=== PATIENT | male | born 1970 | race Caucasian/White ===

== ENCOUNTER 2025-07-31 20:04 | Inpatient (IN) | payer OTHER, SELFPAY ==
[2025-07-31] VITALS (7 sets, daily range): BP systolic 91–103; BP diastolic 58–78; BMI 38.5; BMI 38.2
[2025-07-31 18:35] LABS: Hematocrit 31.0 % (39.0-52.0); Hemoglobin 10.5 g/dL (13.0-18.0); Mean Corp Hgb Conc. 33.9 g/dL (33.0-37.0); Mean Corpuscular Volume 90.4 fL (80.0-94.0); Platelet Count 138 10^3/uL (130-400); Red Cell Dist. Width 19.8 % (11.5-14.5)
[2025-07-31 18:54] LABS: Blood Urea Nitrogen 38 mg/dl (9-20); Calcium 8.5 mg/dl (8.4-10.2); Carbon Dioxide 26 mmol/L (22-30); Chloride 102 mmol/L (98-107); Estimated Creatinine Clearance 23 ml/min; Glucose 70 mg/dl (70-99); Magnesium 2.1 mg/dl (1.6-2.3); Potassium 4.0 mmol/L (3.5-5.1); Sodium 137 mmol/L (135-145); eGFR 12.58
--- NOTE | 2025-07-31 18:58 | ED.GENMED ---
History of Present Illness
General
Chief Complaint: Abdominal Pain
Source: patient
Exam Limitations: none
Time Seen by Provider: 07/31/25 18:04
Nursing documentation reviewed up to this point in time: agreed with
History of Present Illness
History of Present Illness:
Patient with history of end-stage renal disease on hemodialysis (Monday, Monday, Monday) and liver cirrhosis, currently [facility] right femoral perlita placement secondary to fracture, presents to ED secondary to worsening
shortness of breath with increased abdominal distention, despite receiving limited dialysis. Patient states that he required paracentesis 6 months ago, at which time, 7 to 8 L of fluids were removed. Patient feels as though his abdominal
distention is similar to 6 months ago. Denies fever or chills. Denies coughing. Denies vomiting or diarrhea. In addition, patient reports right lower leg abrasion with swelling, after accidental trauma during transport. Patient has chronic
changes in his right lower leg secondary to venous stasis.
Review of Systems
Review of Systems
Allergies reviewed?: Yes
All Other Systems: ROS reviewed and negative except as documented in HPI and ROS
Constitutional: Reports no symptoms; Denies fever
Respiratory: Reports trouble breathing; Denies cough
Cardiac: Reports no symptoms
ABD/GI: Reports no symptoms; Denies vomiting or diarrhea
Musculoskeletal: Reports no symptoms
Skin: Reports no symptoms
Neurological: Reports no symptoms
Phy Exam
Physical Exam
Physical Exam:
Physical Exam
General: no apparent distress, not acutely ill. afebrile
Head: nc/at. eomi
Neck: supple. normal range of motion
Heart: s1/s2 regular rate and rhythm
Lungs: no acute respiratory distress. clear bilaterally
Abdomen: normal bowel sounds. mild distention noted without tenderness
Neuro: alert and oriented x 3. no focal neurological deficits
Skin: no rash
Psychiatric: well kept. interactive and cooperative
Extremities: RLE: well healed incision sites noted over prox thigh and lateral knee, along with superficial abrasion below patella, withtout erythema/ecchymosis/open drainage. Left BKA
Course
Orders/Labs/Results
Orders:
Orders
07/31/25 Dinner
Regular
At Your Request: Full Participation
Does patient need a safe tray?: No
07/31/25 18:22
Basic Metabolic Panel Urgent
Complete Blood Count/No Diff Urgent
Magnesium Urgent
07/31/25 19:32
Admit/Transfer Patient As Directed
Co-Sign Provider:
Level of Care: Inpatient admission
Assign to:: Telemetry
Physician / Group: grayson
Diagnosis: recurrent ascites
Reason for Telemetry: Arrhythmia
Date to Stop Telemetry: 08/03/25
Time to Stop Telemetry: 11:00
Reason for Hospitalization: recurrent ascites
Expected length of stay greater than two midnights?: Yes
ELOS- Estimated Length of Stay in days: 2
I certify the patient meets the requirements for IP care: Yes
PRN Pain Medication Management As Directed
May give lesser potent ordered pain med per pt: Yes
preference::
Protocol:: Medication orders for pain may be administered in a
manner that supports deferring to patient preference
when the pt is:
- Requesting an ordered lesser potent pain medication.
Least to most potent pain medications are defined
as: acetaminophen < NSAID < tramadol < opioids
(morphine, oxycodone, hydromorphone).
- Requesting a lesser dose of the same medication IF
ORDERED.
- Requesting a less intrusive route of administration
if both routes are prescribed by the provider (PO <
IV).
07/31/25 19:33
Code Status As Directed
Resuscitation Status: Full Code
07/31/25 19:36
CR Chest - 2 Views Urgent
Comment:
Reason For Exam: SOB
07/31/25 22:33
NEPHROLOGY CONSULT Routine
Consulting Provider: Wendie Maria
Was physician already notified: Yes
WOUND/OSTOMY CONSULT Routine
Reason for Consult: right lower extremity wound
VTE Contraindication Routine
VTE Mechanical Device Contraindication: Medical Contraindication
Pharmocologic Contraindication: Medical Contraindication
Activity As Directed
Activity Level: As Tolerated
Vital Signs As Directed
Frequency: Per unit guidelines
08/01/25 11:56
Complete Blood Count/With Diff IN AM
Comprehensive Metabolic Panel IN AM
08/03/25 11:00
DC Protocol for Telemetry ONCE
Abnormal Lab Results
07/31/25
18:22
WBC 3.8 L 10^3/uL
(4.8-10.8)
RBC 3.43 L 10^6/uL
(4.70-6.10)
Hgb 10.5 L g/dL
(13.0-18.0)
Hct 31.0 L %
(39.0-52.0)
RDW 19.8 H %
(11.5-14.5)
BUN 38 H mg/dl
(9-20)
Creatinine 5.1 H* mg/dL
(0.7-1.3)
07/31/25 18:22
07/31/25 18:22
Vital Signs
Initial and Last Documented VS:
Initial Vital Signs
Temp Pulse Resp BP Pulse Ox
98.3 F 84 16 100/73 100
07/31/25 16:11 07/31/25 16:11 07/31/25 16:11 07/31/25 16:11 07/31/25 16:11
Last Documented Vital Signs
Temp Pulse Resp BP Pulse Ox
97.7 F 85 20 95/58 95
08/01/25 11:00 08/01/25 12:46 08/01/25 11:00 08/01/25 12:46 08/01/25 11:00
MDM/Problems Addressed
MDM/Problems Addressed:
Patient's presenting shortness of breath, likely multifactorial, including need for dialysis tomorrow, as well as abdominal distention. Patient will benefit from paracentesis as well as dialysis.
*Pulse Oximetry
SaO2: 97
Oxygen Mode of Delivery: Room air
Patient hypoxic: no
*Critical Care Note
Total Time (30-74mins, 75-104mins- exclusive of procedures): Not Applicable
ED Attending Note
-
Portions of this chart may have been created with voice recognition software.� Occasional wrong word or��sound alike� substitutions may have occurred due to the inherent limitations of voice recognition software.
Discharge Plan
Departure
Patient Disposition: Admit
Date of Disposition: 07/31/25
Time of Disposition: 19:06
Admit to: Telemetry
Presentation/result/management discussed w/ accepting MD/DO: Hospitalist
Discharge Problem:
Abdominal distention, Dyspnea, ESRD (end stage renal disease) on dialysis
Interventions
Interventions:
*Risk Screen - Suicide Last Done: 07/31/25 23:21
*General Assessment Last Done: 07/31/25 18:15
*Neglect/Abuse Screening Last Done: 07/31/25 16:11
*ED- Fall Risk Assessment Last Done: 07/31/25 18:15
*ED COVID-19 Vaccine History Last Done: 07/31/25 18:15
*ED Influenza Vaccine History Last Done: 07/31/25 18:15
*Nursing Disposition Last Done: 07/31/25 22:26
LB-Fjankn-Uybkbczpij Assessment Last Done: 07/31/25 18:15
Discharge Date and Time
Discharge Date/Time: 07/31/25 22:27
--- NOTE | 2025-07-31 19:35 | HPS.HSE ---
Family Physician
-
Family Physician: Smitha Proctor
Chief Complaint
-
abd
History of Present Illness
55-year-old male past medical history of ESRD on hemodialysis Monday, Monday, Monday, liver cirrhosis secondary to MASH, paroxysmal atrial fibrillation on Eliquis, chronic venous stasis, left eye blindness, left lower extremity amputation,
presenting with increasing shortness of breath with increased abdominal distention despite receiving dialysis. He required paracentesis 6 months ago at which time 7 L of fluid removed. He denies fevers or chills. Denies cough. Denies vomiting or
diarrhea. His blood pressure normally runs low in the 90s.
He recently had right femur fracture with perlita placement 3 weeks ago.
Patient has a right lower leg abrasion with swelling after accidental trauma during transfer a week ago. He denies any pain but there is with some weeping.
He drinks alcohol occasionally. He has not smoked in over a month.
Medical History
Past Medical History
Past Medical History: Reports Other (ESRD on hemodialysis Monday, Monday, Monday, liver cirrhosis secondary to MASH, paroxysmal atrial fibrillation on Eliquis, chronic venous stasis, left eye blindness, left lower extremity amputation)
Past Surgical History: Reports Other (right femur perlita )
Social History
Tobacco: Non-smoker
Alcohol: None
Drug: None
Family History
Family History: Not pertinent
Allergies / Home Medications
Allergies reflects when Allergies were last updated in [employer].
Home Medications with original date entered in [employer]
Allergy/Medication List:
Allergies
Allergy/AdvReac Type Severity Reaction Status Date / Time
adhesive tape Allergy Rash Verified 07/31/25 16:22
Review of Systems
-
History Source: Patient
A 12 point ROS was completed and negative except as noted: Yes
Constitutional: Reports No Symptoms
EENT: Reports No Symptoms
Cardiac: Reports No Symptoms
Abdomen/GI: Reports See HPI
: Reports No Symptoms
Musculoskeletal: Reports No Symptoms
Skin: Reports No Symptoms
Neurological: Reports No Symptoms
Endocrine: Reports No Symptoms
Hematologic/Lymphatic: Reports No Symptoms
Psych: Reports No Symptoms
Physical Exam
Vital Signs
Vital Signs
Temp Pulse Resp BP Pulse Ox
97.6 F 87 16 99/63 93
07/31/25 18:15 07/31/25 19:00 07/31/25 19:00 07/31/25 19:00 07/31/25 19:00
Physical Exam
General: Well Developed, Well Nourished and No Apparent Distress
HEENT: NormoCephalic, Moist mucous membranes and Atraumatic
Respiratory: Clear
Cardiac: S1/S2 and Regular Rhythm; No Murmur or Rub
GI: Soft, Non Tender, Non Distended and Normal Bowel Sounds; No Organomegaly
Rectal: Deferred by Provider
Musculoskeletal: No Clubbing, No Cyanosis and No Edema
Skin: No Rash
Neuro: Nonfocal/grossly intact
Laboratory Results
-
07/31/25 18:22
07/31/25 18:22
Data Reviewed
-
Lab Data: Labs Reviewed by me
Old Records: Reviewed
Impression/Plan
-
IMPRESSION:
PLAN:
# Recurrent ascites secondary to underlying MASH cirrhosis
- IR consulted for paracentesis
# Dyspnea
- Check chest x-ray
ESRD on hemodialysis Monday, Monday, Monday
- Nephrology consulted for routine dialysis tomorrow
Chronic hypotension
Right lower extremity abrasian with weeping
-wound care
Chronic venous stasis
Chronic anemia secondary to renal disease
Paroxysmal atrial fibrillation
- Continue Eliquis
Left eye blindness
History of left lower extremity amputation
History of right femur fracture with perlita placement
Full code
DVT prophylaxis�Eliquis
Regular diet
[2025-08-01] VITALS (9 sets, daily range): BP systolic 72–98; BP diastolic 49–64; BMI 38.5
--- NOTE | 2025-08-01 06:19 | PTCARENOTE ---
Pt arrived to unit from ED on stretcher at 2230. Pt pulled over to bed d/t weakness and ambulatory dysfunction w/ L BKA and recent R femur fx-patient uses a wheelchair at baseline. Patient with extensive wound on Right leg-local wound care
completed-See wound management intervention. Pt also noted to occasionally pick at skin during nursing assessment-varying small scratches & wounds throughout trunk, face and legs; wounds in various stages of healing-wounds remain open to air.
Patient reports hypotension at baseline. Patient with considerable ascites, distended and firm abdomen, IRAD consult in place. VSS. HD MWF-Scheduled for HD on 08/01. Bed in lowest position and locked, call antoine within reach and pt has no further
concerns at this time.
--- NOTE | 2025-08-01 09:28 | W.PN.HOSP.TC ---
Today's Communication/Plan
-
Monitor for recurrent ascites
Elevate scrotum
HD later today
Assessment / Plan
Assessment / Plan
#Recurrent ascites
#MASH liver cirrhosis
- MELD labs pending; not on diuretics due to anuric state
- Status post diagnostic and therapeutic paracentesis, no signs of SBP
- Will continue to monitor for recurrence of ascites post paracentesis
- Follow-up MELD 3.0 labs, trend daily
#ESRD on HD MWF
- Unclear etiology, patient states that was associated with vancomycin received in the past
- Complicated by bone mineral disease for which she takes sevelamer and Cinacalcet
- Nephrology consulted to resume HD schedule
- Trend BMP, I's and O's, weight
#Chronic hypotension
- Associated with liver cirrhosis and hemodialysis
- Ordered midodrine 5 mg every 4 hours as needed
- Need to confirm home dose midodrine with facility
#RLE abrasion with weeping
#Chronic venous insufficiency
- Wound care
- Trend CBC and temperature curve
#Paroxysmal AF
- Per records, not currently on any anticoagulants or antiarrhythmic agent
- Will monitor here for signs of recurrence
#PAD s/p left BKA
#History of osteomyelitis
- Home regimen includes moderate intensity atorvastatin, not on antiplatelet agent
- States he had amputation for previous infection of his bones, received vancomycin at the time
#Left eye blindness
#Recent hip fracture
Diet: Standard renal
Thromboprophylaxis: SQ heparin
CODE STATUS: Full code
Disposition: [facility] when medically stable
Anticipated Discharge: 24 - 48 hours
Subjective/Interval History
-
Date of Service: August 01, 2025
Seen and examined at the bedside. No acute events reported overnight. AFVSS this morning, blood pressure soft
Underwent paracentesis with 8.4 L removed, states he feels better. Has no new complaints this morning
Fluid studies with PMN count <250.
Objective Data
-
Labs:
Laboratory Results
08/01/25
06:00
WBC Pending
Hgb Pending
Hct Pending
Plt Count Pending
Sodium Pending
Potassium Pending
Chloride Pending
Carbon Dioxide Pending
BUN Pending
Creatinine Pending
Glucose Pending
Calcium Pending
Total Bilirubin Pending
AST Pending
ALT Pending
Alkaline Phosphatase Pending
Vital Signs:
Vital Signs
Temp Pulse Resp BP Pulse Ox
97.7 F 79 16 88/56 93
08/01/25 09:00 08/01/25 09:00 08/01/25 09:00 08/01/25 09:00 08/01/25 09:00
I&O
07/31/25 08/01/25 08/02/25
06:59 06:59 06:59
Intake Total 1080 / 1080
Balance 1080 / 1080
Review of Systems
-
History Source: Patient
All other systems: Reviewed and negative
Physical Exam
-
General: Well Developed, No Apparent Distress and Morbidly Obese
HEENT: Normocephalic, Atraumatic and Moist Mucous Membranes
Respiratory: Clear to Auscultation and Non Labored Respirations; Negative Accessory Resp Muscle Use
Cardiac: Regular Rhythm, S1/S2 and Murmur; Negative Rub or Gallop
GI: Soft, Nontender, Nondistended and Normal Bowel Sounds
Musculoskeletal: No Clubbing, No Cyanosis, No Edema and Other (Left AKA)
Skin: Warm and Dry; Negative Rash
Neuro: AO x 3, Nonfocal/Grossly Intact and Central Nerve's Intact
Psych: Calm
Data Reviewed
-
Labs: Labs Reviewed by me, Discussed with Nurse and Discussed with Patient
[2025-08-01 10:51] LABS: Body Fluid Second Tech EM
[2025-08-01] MEDS: MANNITOL 25% 12.5 GRAMS IV ×2 (12:16→14:35)
[2025-08-01] MEDS: FLEXBUMIN 25% FOR HEMODIALYSIS 12.5 GRAMS IV ×2 (12:16→14:35)
[2025-08-01] MEDS: RETACRIT 4000 UNITS IV (12:17)
[2025-08-01 12:20] LABS: Hematocrit 29.3 % (39.0-52.0); Hemoglobin 10.0 g/dL (13.0-18.0); Mean Corp Hgb Conc. 34.1 g/dL (33.0-37.0); Mean Corpuscular Volume 89.1 fL (80.0-94.0); Nucleated Red Blood Cells % 0 % (-); Platelet Count 121 10^3/uL (130-400); Red Cell Dist. Width 19.7 % (11.5-14.5)
[2025-08-01] MEDS: BENADRYL 50 MG PO (12:21)
--- NOTE | 2025-08-01 12:36 | W.CON.NEPH ---
Consultation
-
Date/Time Consultation Requested: July 31, 2025 at 1900 hrs.
Date/Time Consultation Performed: August 01, 2025 at 12 PM
Requesting Provider: Zhanna Wilkerson
Performing Provider: Dr. Antony
Reason for Consultation: ESRD on dialysis
Medical History
-
Chief Complaint: ESRD
History of Present Illness:
55-year-old male past medical history of ESRD on hemodialysis Monday, Monday, Monday, liver cirrhosis secondary to MASH, paroxysmal atrial fibrillation on Eliquis, chronic venous stasis, left eye blindness, left lower extremity amputation,
presenting with increasing shortness of breath with increased abdominal distention despite receiving dialysis. He required paracentesis 6 months ago at which time 7 L of fluid removed.
He recently had right femur fracture with perlita placement 3 weeks ago.
Renal consultation for end-stage renal disease on dialysis
Past Medical History
ESRD on hemodialysis Monday, Monday, Monday, liver cirrhosis secondary to MASH, paroxysmal atrial fibrillation on Eliquis, chronic venous stasis, left eye blindness, left lower extremity amputation
Social History
Tobacco: Former Smoker
Alcohol: Occasional
Family History
Family History: Not Pertinent
Allergies / Home Medications
Allergy/AdvReac Type Severity Reaction Status Date / Time
adhesive tape Allergy Rash Verified 07/31/25 16:22
�Medication �Instructions �Recorded �Confirmed �Type
atorvastatin 20 mg tablet 20 mg PO QPM 08/01/25 08/01/25 History
bisacodyl 10 mg rectal suppository 10 mg [place] DAILY PRN constipation if 08/01/25 08/01/25 History
MOM is ineffec
carboxymethylcellulose sodium 0.5 1 drp ophthalmic (eye) QID PRN dry 08/01/25 08/01/25 History
% eye drops in a dropperette eyes
cinacalcet 30 mg tablet 30 mg PO DAILY 08/01/25 08/01/25 History
diclofenac sodium 3 % topical gel 1 applic topical BID 08/01/25 08/01/25 History
ferric citrate 210 mg iron tablet 420 mg PO TID GERD 08/01/25 08/01/25 History
lidocaine 4 % topical gel 1 applic topical DAILY 08/01/25 08/01/25 History
loperamide 2 mg tablet 2 mg PO Q8H PRN diarrhea 08/01/25 08/01/25 History
methocarbamol 500 mg tablet 500 mg PO QID PRN spasms 08/01/25 08/01/25 History
sevelamer HCl 800 mg tablet 800 mg PO TID nutritional 08/01/25 08/01/25 History
supplement
tramadol 50 mg tablet 50 mg PO BID PRN moderate pain 08/01/25 08/01/25 History
white petrolatum (White Petroleum 1 applic topical DAILY PRN 08/01/25 08/01/25 History
Jelly topical) preventative measure dry skin
Review of Systems
-
Shortness of breath improved abdominal distention improved. No chest pain
All other systems: Negative unless noted
Physical Exam
Vital Signs
Vital Signs
Temp Pulse Resp BP Pulse Ox
97.7 F 63 20 88/55 95
08/01/25 11:00 08/01/25 11:00 08/01/25 11:00 08/01/25 11:00 08/01/25 11:00
Lab Results
WBC 3.6 10^3/uL (4.8-10.8) L 08/01/25 11:56
RBC 3.29 10^6/uL (4.70-6.10) L 08/01/25 11:56
Hgb 10.0 g/dL (13.0-18.0) L 08/01/25 11:56
Hct 29.3 % (39.0-52.0) L 08/01/25 11:56
Plt Count 121 10^3/uL (130-400) L 08/01/25 11:56
eGFR 12.58 07/31/25 18:22
Physical Exam
General no acute distress
HEENT no cephalic atraumatic extraocular muscle intact no scleral icterus no JVD neck supple
lungs clear to auscultation bilateral
heart regular S1-S2 positive
abdomen soft nontender positive bowel sounds
extremities no edema pulses present bilateral
Neurologically nonfocal alert and oriented x 3
Skin no lesions no abrasions no petechiae
Psych normal affect no bizarre behavior
Data Reviewed
-
Radiology: Image Personally Visualized and interpreted
Labs: Labs Reviewed by me, Discussed with Nurse and Discussed with Patient
Assessment/Plan
-
55-year-old male past medical history of ESRD on hemodialysis Monday, Monday, Monday, liver cirrhosis secondary to NOLASCO, paroxysmal atrial fibrillation on Eliquis, chronic venous stasis, left eye blindness, left lower extremity amputation,
presenting with increasing shortness of breath with increased abdominal distention despite receiving dialysis. He required paracentesis 6 months ago at which time 7 L of fluid removed.
Impression.
ESRD Monday
NOLASCO
Anemia of chronic disease
Atrial fibrillation
Plan
Dialysis today
Epogen with dialysis for hemoglobin goal greater than 10
Status post thoracentesis
Ultrafiltration as blood pressure tolerates though has chronically low blood pressure will give midodrine
--- NOTE | 2025-08-01 12:41 | W.PN.NEPH.HD ---
Assessment
-
Midodrine
EPO
Progress Note - Hemodialysis
-
Date of Service: August 01, 2025
Duration: 30 minutes and 3 hours
Potassium Bath: 2
Calcium Bath: 2.5
Opti-Dialyzer: 160
Blood Flow: 400
Dialysate Flow: 600
--- NOTE | 2025-08-01 13:39 | WOUNDNOTE ---
[facility] RN NOTE: Reviewed chart and met with patient. Patient is from [facility] and gets dialysis M-W-F. Patient receiving dialysis at time of assessment. Patient reports hitting his right knee a few weeks ago when being transferred at facility.
Patient reported increased drainage with LE swelling. The wound is a shallow abrasion with erythema. Local wound care provided as ordered. Right heel intact. Will recommend static air overlay as patient reports he only gets out of bed with max
assist and has air mattress at facility. Will update RN and confirm orders with hospitalist. Will sign off.
[2025-08-01] MEDS: SENSIPAR 30 MG PO (13:40)
[2025-08-01 14:04] LABS: ALT (SGPT) < 10 U/L (0-50); AST (SGOT) 22 U/L (17-59); Albumin 2.9 g/dl (3.5-5.0); Alkaline Phosphatase 103 U/L (38-126); Blood Urea Nitrogen 41 mg/dl (9-20); Calcium 8.3 mg/dl (8.4-10.2); Carbon Dioxide 23 mmol/L (22-30); Chloride 103 mmol/L (98-107); Estimated Creatinine Clearance 21 ml/min; Glucose 93 mg/dl (70-99); Potassium 4.1 mmol/L (3.5-5.1); Sodium 136 mmol/L (135-145); Total Protein 6.7 g/dl (6.3-8.2); eGFR 11.01
[2025-08-01 14:10] LABS: Hepatitis B Surface Antigen Negative (Negative)
--- NOTE | 2025-08-01 14:37 | WOUNDNOTE ---
RIGHT LOWER LEG WOUND
--- NOTE | 2025-08-01 14:38 | CM ---
Addendum entered by Bindu Moore RN 08/01/25 16:15:
IMM reviewed.
Original Note:
Reviewed the chart notes and spoke with the patient at the bedside on HD. The patient is currently at [facility] for short term rehab. Patient plans on returning to [facility] to continue rehab. Patient is bed/wheelchair bound. Patient prior
to SNF was using a transfer board. Patient plans to rehab and return home to family. CM spoke with [facility] Spooler at [facility]. Precert needs to be obtained to return for skilled rehab. CM continues to be available to patient/family
and is monitoring medical plan for needs at discharge.
Plan: Discharge back to [facility] when medically stable.
[facility]
Dr. Proctor
[2025-08-01] MEDS: ULTRAM 50 MG PO ×2 (15:43→23:23)
[2025-08-01] MEDS: HEPARIN SC ×2 (16:34→23:19)
[2025-08-01] MEDS: RENVELA 800 MG PO (17:33)
[2025-08-01] MEDS: LIPITOR 20 MG PO (17:33)
[2025-08-01] MEDS: IMODIUM 2 MG PO (23:23)
[2025-08-02] VITALS (8 sets, daily range): BP systolic 89–102; BP diastolic 50–59; PULSE 84–85; O2SAT 95–98; BMI 36.0
[2025-08-02 07:21] LABS: Hematocrit 30.6 % (39.0-52.0); Hemoglobin 9.9 g/dL (13.0-18.0); Mean Corp Hgb Conc. 32.4 g/dL (33.0-37.0); Mean Corpuscular Volume 91.3 fL (80.0-94.0); Nucleated Red Blood Cells % 0 % (-); Platelet Count 113 10^3/uL (130-400); Red Cell Dist. Width 19.5 % (11.5-14.5)
[2025-08-02 07:56] LABS: ALT (SGPT) < 10 U/L (0-50); AST (SGOT) 21 U/L (17-59); Albumin 2.9 g/dl (3.5-5.0); Alkaline Phosphatase 104 U/L (38-126); Blood Urea Nitrogen 32 mg/dl (9-20); Calcium 7.7 mg/dl (8.4-10.2); Carbon Dioxide 28 mmol/L (22-30); Chloride 100 mmol/L (98-107); Estimated Creatinine Clearance 25 ml/min; Glucose 68 mg/dl (70-99); Potassium 4.0 mmol/L (3.5-5.1); Sodium 135 mmol/L (135-145); Total Protein 6.6 g/dl (6.3-8.2); eGFR 14.24
[2025-08-02] MEDS: SENSIPAR 30 MG PO (08:00)
[2025-08-02] MEDS: RENVELA 800 MG PO ×3 (08:00→17:35)
[2025-08-02] MEDS: HEPARIN SC ×2 (09:09→16:28)
--- NOTE | 2025-08-02 09:21 | W.PN.HOSP.TC ---
Today's Communication/Plan
-
Continue hemodialysis schedule
Monitor abdomen for recurrence of ascites
Trend CBC
Possible discharge
Assessment / Plan
Assessment / Plan
#Recurrent ascites
#MASH liver cirrhosis
- MELD labs pending; not on diuretics due to anuric state
- Status post diagnostic and therapeutic paracentesis, no signs of SBP
- Will continue to monitor for recurrence of ascites post paracentesis
- Follow-up MELD 3.0 labs, trend daily
#ESRD on HD MWF
- Unclear etiology, patient states that was associated with vancomycin received in the past
- Complicated by bone mineral disease for which she takes sevelamer and Cinacalcet
- Nephrology consulted to resume HD schedule
- Trend BMP, I's and O's, weight
#Cardiac murmur
- Has a 2/6 murmur best heard in the RUSB with honking quality
- Suspect calcific aortic stenosis, especially with ESRD history
- No signs of CHF or decompensation
- Recommend OP TTE and follow-up with cardiology
#Bleeding from HD access
#Mild thrombocytopenia
- Bleeding has improved since holding SQH
- Hemoglobin stable, platelets mildly downtrended
- Continue to trend CBC
#Chronic hypotension
- Associated with liver cirrhosis and hemodialysis
- Ordered midodrine 5 mg every 4 hours as needed
- Need to confirm home dose midodrine with facility
#RLE abrasion with weeping
#Chronic venous insufficiency
- Wound care
- Trend CBC and temperature curve
#Paroxysmal AF
- Per records, not currently on any anticoagulants or antiarrhythmic agent
- Will monitor here for signs of recurrence
#PAD s/p left BKA
#History of osteomyelitis
- Home regimen includes moderate intensity atorvastatin, not on antiplatelet agent
- States he had amputation for previous infection of his bones, received vancomycin at the time
#Left eye blindness
#Recent hip fracture
Diet: Standard renal
Thromboprophylaxis: SQ heparin
CODE STATUS: Full code
Disposition: [facility] when medically stable, case management to discuss about other possible dispositions
Anticipated Discharge: Within 24 hours
Subjective/Interval History
-
Date of Service: August 02, 2025
Seen examined at the bedside. No acute events reported overnight. AFVSS this morning
Glucose of 68 prior to breakfast however remainder of labs stable. Denies any new complaints today
Mentions that he was not happy with [facility] and would like to speak to case management about other options
Objective Data
-
Labs:
Laboratory Results
08/02/25
06:43
WBC 3.6 L
Hgb 9.9 L
Hct 30.6 L
Plt Count 113 L
Sodium 135
Potassium 4.0
Chloride 100
Carbon Dioxide 28
BUN 32 H
Creatinine 4.6 H*
Glucose 68 L
Calcium 7.7 L
Total Bilirubin 1.0
AST 21
ALT < 10
Alkaline Phosphatase 104
Vital Signs:
Vital Signs
Temp Pulse Resp BP Pulse Ox
97.7 F 81 16 99/52 98
08/02/25 07:40 08/02/25 07:40 08/02/25 07:40 08/02/25 07:40 08/02/25 07:40
I&O
08/01/25 08/02/25 08/03/25
06:59 06:59 06:59
Intake Total 1080 / 1080 1680 / 1680
Output Total 0 / 0
Balance 1080 / 1080 1680 / 1680
Review of Systems
-
History Source: Patient
All other systems: Reviewed and negative
Physical Exam
-
General: Well Developed, No Apparent Distress, Appears Chronically Ill and Morbidly Obese
HEENT: Normocephalic, Atraumatic, Moist Mucous Membranes and Anicteric
Respiratory: Clear to Auscultation and Non Labored Respirations; Negative Accessory Resp Muscle Use
Cardiac: Regular Rhythm, S1/S2 and Murmur; Negative Rub or Gallop
GI: Soft, Nontender, Nondistended, Normal Bowel Sounds and Other (No fluid wave or distention)
Musculoskeletal: No Clubbing, No Cyanosis and No Edema
Skin: Warm and Dry; Negative Rash
Neuro: AO x 3, Nonfocal/Grossly Intact and Central Nerve's Intact; Negative Tremors
Psych: Calm
Data Reviewed
-
Labs: Labs Reviewed by me, Discussed with Nurse and Discussed with Patient
--- NOTE | 2025-08-02 11:38 | W.PN.NEPH.PH ---
Today's Communication / Plan
-
Dialysis Monday if still in the hospital
Assessment/Plan
-
55-year-old male past medical history of ESRD on hemodialysis Monday, Monday, Monday, liver cirrhosis secondary to NOLASCO, paroxysmal atrial fibrillation on Eliquis, chronic venous stasis, left eye blindness, left lower extremity amputation,
presenting with increasing shortness of breath with increased abdominal distention despite receiving dialysis. He required paracentesis 6 months ago at which time 7 L of fluid removed.
Impression.
ESRD Monday
NOLASCO
Anemia of chronic disease
Atrial fibrillation
Plan
Continue MWF y
Epogen with dialysis for hemoglobin goal greater than 10
Status post paracentesis
No acute need for dialysis today
-
-
Date of Service: August 02, 2025
CC / HPI / ROS
-
Chief Complaint:
ESRD
History of Present Illness:
Yesterday presented with shortness of breath abdominal distention ascites status post paracentesis
Review of Systems:
No shortness of breath or chest pain
Labs
-
Labs:
WBC 3.6 10^3/uL (4.8-10.8) L 08/02/25 06:43
RBC 3.35 10^6/uL (4.70-6.10) L 08/02/25 06:43
Hgb 9.9 g/dL (13.0-18.0) L 08/02/25 06:43
Hct 30.6 % (39.0-52.0) L 08/02/25 06:43
Plt Count 113 10^3/uL (130-400) L 08/02/25 06:43
Sodium 135 mmol/L (135-145) 08/02/25 06:43
Potassium 4.0 mmol/L (3.5-5.1) 08/02/25 06:43
Chloride 100 mmol/L (98-107) 08/02/25 06:43
Carbon Dioxide 28 mmol/L (22-30) 08/02/25 06:43
BUN 32 mg/dl (9-20) H 08/02/25 06:43
Creatinine 4.6 mg/dL (0.7-1.3) H* 08/02/25 06:43
eGFR 14.24 08/02/25 06:43
Glucose 68 mg/dl (70-99) L 08/02/25 06:43
Calcium 7.7 mg/dl (8.4-10.2) L 08/02/25 06:43
Albumin 2.9 g/dl (3.5-5.0) L 08/02/25 06:43
Physical Exam
-
Vital Signs:
Vital Signs
Temp Pulse Resp BP Pulse Ox
97.5 F 82 16 93/56 98
08/02/25 11:24 08/02/25 11:24 08/02/25 11:24 08/02/25 11:24 08/02/25 11:24
Respiratory:: Bilateral: CTA
Lung Excursion:: Normal
Abdomen:: Nontender and Soft
Bowel Sounds:: Normal
Extremity Edema:: None: Bilateral:
--- NOTE | 2025-08-02 15:26 | CM ---
CM reviewed pt with attending and pt medically ready for dc
Bed remains available at [facility]
Bedside meeting with pt and he does not want to return back to [facility]
Pt is requesting SNF be arranged closer his home in [facility]
Pt typically resides with his parents and has been attending outpt HD at [facility] for approx 9 years
He utilizes county transport and a slide board for transfers into HD chair as pt with Alaina BRUCE
He noted he typically goes to [facility] or [facility] for SNF rehab and utilizes their vans for transport to outpt HD
Not appropriate at this time as pt is unable to transfer into outpt HD chair via slideboard
Upon leg fx repair at [facility], a bed was arranged ar [facility] with onsite HD but due to dc delay, bed no longer available
He is requesting referrals to [facility]
If alternate bed cannot be arranged, he is in agreement with return to [facility]
Referrals sent and pending- will need Devaughn medina
[facility] SNF
Dr. Proctor
Discharge Disposition- SNF closer to [facility] vs return to [facility]
[2025-08-02] MEDS: LIPITOR 20 MG PO (17:35)
[2025-08-02] MEDS: ULTRAM 50 MG PO (20:31)
[2025-08-02] MEDS: BENADRYL 50 MG PO (20:32)
[2025-08-03] VITALS (7 sets, daily range): BP systolic 88–116; BP diastolic 50–65; BMI 36.5
[2025-08-03] MEDS: HEPARIN SC ×2 (00:29→09:22)
--- NOTE | 2025-08-03 08:53 | W.PN.HOSP.TC ---
Today's Communication/Plan
-
IR paracentesis tomorrow
HD tomorrow
Monitor weights
Hypoglycemic precautions
Assessment / Plan
Assessment / Plan
#Recurrent ascites
#MASH liver cirrhosis
- MELD labs pending; not on diuretics due to anuric state
- Status post diagnostic and therapeutic paracentesis, no signs of SBP
- Will continue to monitor for recurrence of ascites post paracentesis
- Follow-up MELD 3.0 labs, trend daily
- IR consulted for Tx paracentesis on 08/04
#ESRD on HD MWF
- Unclear etiology, patient states that was associated with vancomycin received in the past
- Complicated by bone mineral disease for which she takes sevelamer and Cinacalcet
- Nephrology consulted to resume HD schedule
- Trend BMP, I's and O's, weight
#Cardiac murmur
- Has a 2/6 murmur best heard in the RUSB with honking quality
- Suspect calcific aortic stenosis, especially with ESRD history
- No signs of CHF or decompensation
- Recommend OP TTE and follow-up with cardiology
#Bleeding from HD access
#Mild thrombocytopenia
- Bleeding has improved since holding SQH
- Hemoglobin stable, platelets mildly downtrended
- Continue to trend CBC
#Chronic hypotension
- Associated with liver cirrhosis and hemodialysis
- Ordered midodrine 5 mg every 4 hours as needed
- Need to confirm home dose midodrine with facility
#RLE abrasion with weeping
#Chronic venous insufficiency
- Wound care
- Trend CBC and temperature curve
#Paroxysmal AF
- Per records, not currently on any anticoagulants or antiarrhythmic agent
- Will monitor here for signs of recurrence
#PAD s/p left BKA
#History of osteomyelitis
- Home regimen includes moderate intensity atorvastatin, not on antiplatelet agent
- States he had amputation for previous infection of his bones, received vancomycin at the time
#Left eye blindness
#Recent hip fracture
Diet: Standard renal
Thromboprophylaxis: SQ heparin
CODE STATUS: Full code
Disposition: [facility] when medically stable, case management to discuss about other possible dispositions
Anticipated Discharge: 24 - 48 hours
Subjective/Interval History
-
Date of Service: August 03, 2025
Seen and examined at the bedside. NAEON. WENS this morning
Hypoglycemic to 52 this AM, labs otherwise stable.
Denies any new complaints. States he feels as if some ascitic fluid returned
Objective Data
-
Vital Signs:
Vital Signs
Temp Pulse Resp BP Pulse Ox
97.5 F 79 16 115/65 97
08/03/25 07:40 08/03/25 07:40 08/03/25 07:40 08/03/25 07:40 08/03/25 07:40
I&O
08/02/25 08/03/25 08/04/25
06:59 06:59 06:59
Intake Total 1680 / 1680 800 / 800
Output Total 0 / 0
Balance 1680 / 1680 800 / 800
Review of Systems
-
History Source: Patient
All other systems: Reviewed and negative
Physical Exam
-
General: Well Developed, Appears Chronically Ill and Obese
HEENT: Normocephalic, Atraumatic, Moist Mucous Membranes and Anicteric
Respiratory: Clear to Auscultation and Non Labored Respirations; Negative Accessory Resp Muscle Use
Cardiac: Regular Rhythm, S1/S2 and Murmur; Negative Rub or Gallop
GI: Soft, Nontender, Normal Bowel Sounds and Distended (Mild, fluid wave+)
Musculoskeletal: No Clubbing, No Cyanosis, No Edema and Other ((L) BKA)
Skin: Warm and Dry; Negative Rash
Neuro: AO x 3, Nonfocal/Grossly Intact and Central Nerve's Intact
Psych: Calm
Data Reviewed
-
Labs: Labs Reviewed by me and Discussed with Patient
[2025-08-03] MEDS: RENVELA 800 MG PO ×2 (09:22→16:16)
[2025-08-03] MEDS: SENSIPAR 30 MG PO (09:22)
[2025-08-03 09:23] LABS: Hematocrit 30.9 % (39.0-52.0); Hemoglobin 9.9 g/dL (13.0-18.0); Mean Corp Hgb Conc. 32.0 g/dL (33.0-37.0); Mean Corpuscular Volume 93.1 fL (80.0-94.0); Nucleated Red Blood Cells % 0 % (-); Platelet Count 106 10^3/uL (130-400); Red Cell Dist. Width 20.1 % (11.5-14.5)
[2025-08-03 09:42] LABS: Blood Urea Nitrogen 40 mg/dl (9-20); Calcium 7.7 mg/dl (8.4-10.2); Carbon Dioxide 29 mmol/L (22-30); Chloride 100 mmol/L (98-107); Estimated Creatinine Clearance 21 ml/min; Glucose 52 mg/dl (70-99); Potassium 4.6 mmol/L (3.5-5.1); Sodium 135 mmol/L (135-145); eGFR 11.75
[2025-08-03 10:14] LABS: Glucose - Point of Care 70 mg/dl (70-99)
[2025-08-03] MEDS: HEPARIN 5000 UNITS SC ×3 (10:43→23:03)
[2025-08-03] MEDS: RENVELA PO ×2 (13:48→18:08)
--- NOTE | 2025-08-03 14:59 | W.PN.NEPH.PH ---
Today's Communication / Plan
-
Dialysis tomorrow
Assessment/Plan
-
55-year-old male past medical history of ESRD on hemodialysis Monday, Monday, Monday, liver cirrhosis secondary to NOLASCO, paroxysmal atrial fibrillation on Eliquis, chronic venous stasis, left eye blindness, left lower extremity amputation,
presenting with increasing shortness of breath with increased abdominal distention despite receiving dialysis. He required paracentesis 6 months ago at which time 7 L of fluid removed.
Impression.
ESRD Monday
NOLASCO
Anemia of chronic disease
Atrial fibrillation
Plan
Continue MWF y
Epogen with dialysis for hemoglobin goal greater than 10
Status post paracentesis, may require another prior to discharge.
No acute need for dialysis today
-
-
Date of Service: August 03, 2025
CC / HPI / ROS
-
Chief Complaint:
ESRD
History of Present Illness:
Presented with shortness of breath abdominal distention ascites status post paracentesis secondary to NOLASCO
Review of Systems:
No shortness of breath or chest pain
Increasing abdominal distention
Labs
-
Labs:
WBC 3.7 10^3/uL (4.8-10.8) L 08/03/25 09:09
RBC 3.32 10^6/uL (4.70-6.10) L 08/03/25 09:09
Hgb 9.9 g/dL (13.0-18.0) L 08/03/25 09:09
Hct 30.9 % (39.0-52.0) L 08/03/25 09:09
Plt Count 106 10^3/uL (130-400) L 08/03/25 09:09
Sodium 135 mmol/L (135-145) 08/03/25 09:09
Potassium 4.6 mmol/L (3.5-5.1) 08/03/25 09:09
Chloride 100 mmol/L (98-107) 08/03/25 09:09
Carbon Dioxide 29 mmol/L (22-30) 08/03/25 09:09
BUN 40 mg/dl (9-20) H 08/03/25 09:09
Creatinine 5.4 mg/dL (0.7-1.3) H* 08/03/25 09:09
eGFR 11.75 08/03/25 09:09
Glucose 52 mg/dl (70-99) L* 08/03/25 09:09
Calcium 7.7 mg/dl (8.4-10.2) L 08/03/25 09:09
Albumin 2.9 g/dl (3.5-5.0) L 08/02/25 06:43
Physical Exam
-
Vital Signs:
Vital Signs
Temp Pulse Resp BP Pulse Ox
97.7 F 92 20 106/59 100
08/03/25 11:15 08/03/25 11:15 08/03/25 11:15 08/03/25 11:15 08/03/25 11:15
Respiratory:: Bilateral: CTA
Lung Excursion:: Normal
Abdomen:: Distended, Nontender and Soft
Bowel Sounds:: Normal
Extremity Edema:: None: Bilateral:
[2025-08-03] MEDS: LIPITOR 20 MG PO (17:26)
[2025-08-03] MEDS: ULTRAM 50 MG PO (17:35)
[2025-08-03 22:42] LABS: Glucose - Point of Care 101 mg/dl (70-99)
[2025-08-03 22:42] LABS: Glucose - Point of Care 103 mg/dl (70-99)
[2025-08-03 22:42] LABS: Glucose - Point of Care 90 mg/dl (70-99)
[2025-08-04] VITALS (9 sets, daily range): BP systolic 72–106; BP diastolic 42–67; BMI 36.8
[2025-08-04] MEDS: BENADRYL 50 MG PO (00:29)
[2025-08-04 07:19] LABS: Glucose - Point of Care 47 mg/dl (70-99)
[2025-08-04] MEDS: SENSIPAR 30 MG PO (07:29)
[2025-08-04] MEDS: HEPARIN SC ×3 (07:30→15:04)
[2025-08-04] MEDS: RENVELA PO ×2 (07:35→12:52)
[2025-08-04 07:37] LABS: Glucose - Point of Care 50 mg/dl (70-99)
[2025-08-04 08:13] LABS: Hematocrit 30.6 % (39.0-52.0); Hemoglobin 9.7 g/dL (13.0-18.0); Mean Corp Hgb Conc. 31.7 g/dL (33.0-37.0); Mean Corpuscular Volume 93.6 fL (80.0-94.0); Nucleated Red Blood Cells % 0 % (-); Platelet Count 126 10^3/uL (130-400); Red Cell Dist. Width 19.7 % (11.5-14.5)
[2025-08-04 08:33] LABS: Glucose - Point of Care 78 mg/dl (70-99)
[2025-08-04 08:42] LABS: Blood Urea Nitrogen 45 mg/dl (9-20); Calcium 7.5 mg/dl (8.4-10.2); Carbon Dioxide 27 mmol/L (22-30); Chloride 100 mmol/L (98-107); Estimated Creatinine Clearance 19 ml/min; Glucose 45 mg/dl (70-99); Magnesium 2.0 mg/dl (1.6-2.3); Potassium 5.1 mmol/L (3.5-5.1); Sodium 134 mmol/L (135-145); eGFR 9.95
--- NOTE | 2025-08-04 08:44 | W.PN.NEPH.HD ---
Assessment
-
Patient seen on dialysis
Systolic blood pressure stable with current UF
Progress Note - Hemodialysis
-
Date of Service: August 04, 2025
Duration: 30 minutes and 3 hours
Potassium Bath: 2
Calcium Bath: 2.5
Opti-Dialyzer: 160
Ultrafiltration: Other
Blood Flow: 400
Dialysate Flow: 600
Heparin: none
EPO: 4000
--- NOTE | 2025-08-04 09:42 | CM ---
Reviewed the chart notes. Patient on HD today. Patient scheduled for IR for therapeutic paracentesis today. CM continues to be available to patient/family and is monitoring medical plan for needs at discharge.
Plan: Discharge to SNF/rehab. Referral were sent to two other facilities at the patient's request. If unable to discharge to either facility, will discharge back to [facility] Precert will be required.
[2025-08-04] MEDS: RETACRIT 4000 UNITS IV (09:46)
[2025-08-04] MEDS: MANNITOL 25% 12.5 GRAMS IV ×2 (10:10→11:11)
--- NOTE | 2025-08-04 10:11 | PTCARENOTE ---
Pt hypoglycemic this AM at 47. 4 oz juice given, rechecked at 50. Second 4 oz juice given, BS came up to 78. See hypoglycemic intervention. No new orders at this time.
[2025-08-04 11:49] LABS: Glucose - Point of Care 82 mg/dl (70-99)
--- NOTE | 2025-08-04 12:18 | W.PN.HOSP.TC ---
Today's Communication/Plan
-
Monitor glucose levels
HD
Assessment / Plan
Assessment / Plan
#Hypoglycemic
� Asymptomatic, suspect secondary to not eating a meal last night
� Educated on not skipping meals
� Monitor today
� No obvious source of infection, for follow-up, trend fever curve, white count
#Recurrent ascites
#MASH liver cirrhosis
- not on diuretics due to anuric state
- Status post diagnostic and therapeutic paracentesis, no signs of SBP
- Will continue to monitor for recurrence of ascites post paracentesis
- IR consulted for Tx paracentesis on 08/04
#Hyponatremia
� Monitor with HD
#ESRD on HD MWF
- Unclear etiology
- Complicated by bone mineral disease for which she takes sevelamer and Cinacalcet
- Nephrology consulted to resume HD schedule
- Trend BMP, I's and O's, weight
#Cardiac murmur
- Has a 2/6 murmur best heard in the RUSB with honking quality
- Suspect calcific aortic stenosis, especially with ESRD history
- No signs of CHF or decompensation
- Recommend OP TTE and follow-up with cardiology
#Bleeding from HD access
#Mild thrombocytopenia
- Bleeding has improved since holding SQH
- Hemoglobin stable
#Chronic hypotension
- Associated with liver cirrhosis and hemodialysis
- Ordered midodrine 5 mg every 4 hours as needed
- Need to confirm home dose midodrine with facility
#RLE abrasion with weeping
#Chronic venous insufficiency
- Wound care
- Trend CBC and temperature curve
#Paroxysmal AF
- Per records, not currently on any anticoagulants or antiarrhythmic agent
- Will monitor here for signs of recurrence
#PAD s/p left BKA
#History of osteomyelitis
- Home regimen includes moderate intensity atorvastatin, not on antiplatelet agent
- States he had amputation for previous infection of his bones, received vancomycin at the time
#Left eye blindness
#Recent hip fracture
Diet: Standard renal
Thromboprophylaxis: SQ heparin
CODE STATUS: Full code
Disposition: [facility] when medically stable, case management to discuss about other possible dispositions
Anticipated Discharge: Within 24 hours
Subjective/Interval History
-
Date of Service: August 04, 2025
Hypoglycemic this morning, states he did not eat anything last night
Objective Data
-
Labs:
Laboratory Results
08/04/25
07:07
WBC 3.3 L
Hgb 9.7 L
Hct 30.6 L
Plt Count 126 L
Sodium 134 L
Potassium 5.1
Chloride 100
Carbon Dioxide 27
BUN 45 H
Creatinine 6.2 H*
Glucose 45 L*
Calcium 7.5 L
Vital Signs:
Vital Signs
Temp Pulse Resp BP Pulse Ox
97.4 F 84 18 83/42 96
08/04/25 11:09 08/04/25 11:09 08/04/25 11:09 08/04/25 11:09 08/04/25 11:09
I&O
08/03/25 08/04/25 08/05/25
06:59 06:59 06:59
Intake Total 800 / 800 740 / 740
Balance 800 / 800 740 / 740
Review of Systems
-
History Source: Patient
All other systems: Reviewed and negative
Data Reviewed
-
Diagnostic Radiology: Report Reviewed by me
Labs: Labs Reviewed by me and Discussed with Patient
--- NOTE | 2025-08-04 12:33 | PTCARENOTE ---
PRN midodrine not given for BP of 83/42, BP came up to 91/45. HD aware.
[2025-08-04 16:26] LABS: Body Fluid Second Tech DW
[2025-08-04 17:24] LABS: Glucose - Point of Care 50 mg/dl (70-99)
[2025-08-04] MEDS: RENVELA 800 MG PO (17:26)
[2025-08-04] MEDS: LIPITOR 20 MG PO (17:26)
[2025-08-04 19:01] LABS: Glucose - Point of Care 96 mg/dl (70-99)
[2025-08-04] MEDS: DESENEX/MITRAZOL/ZEASORB 1 APPLIC TOPICAL (21:49)
[2025-08-05] MEDS: HEPARIN 5000 UNITS SC ×3 (00:06→17:42)
[2025-08-05 03:37] VITALS: BP 96/58
[2025-08-05 04:08] LABS: Glucose - Point of Care 106 mg/dl (70-99)
[2025-08-05 06:00] VITALS: BMI 34.6
[2025-08-05 07:25] VITALS: BP 107/63
[2025-08-05] MEDS: SENSIPAR 30 MG PO (08:22)
[2025-08-05] MEDS: RENVELA 800 MG PO ×3 (08:22→17:41)
[2025-08-05] MEDS: DESENEX/MITRAZOL/ZEASORB 1 APPLIC TOPICAL ×2 (08:25→20:50)
[2025-08-05 09:12] LABS: Hematocrit 32.3 % (39.0-52.0); Hemoglobin 10.7 g/dL (13.0-18.0); Mean Corp Hgb Conc. 33.1 g/dL (33.0-37.0); Mean Corpuscular Volume 91.0 fL (80.0-94.0); Platelet Count 110 10^3/uL (130-400); Red Cell Dist. Width 20.0 % (11.5-14.5)
[2025-08-05 10:14] LABS: Glucose - Point of Care 106 mg/dl (70-99)
[2025-08-05 11:02] LABS: ALT (SGPT) 12 U/L (0-50); AST (SGOT) 28 U/L (17-59); Albumin 2.9 g/dl (3.5-5.0); Alkaline Phosphatase 148 U/L (38-126); Blood Urea Nitrogen 35 mg/dl (9-20); Calcium 7.3 mg/dl (8.4-10.2); Carbon Dioxide 30 mmol/L (22-30); Chloride 98 mmol/L (98-107); Estimated Creatinine Clearance 23 ml/min; Glucose 67 mg/dl (70-99); Potassium 5.0 mmol/L (3.5-5.1); Sodium 131 mmol/L (135-145); Total Protein 6.9 g/dl (6.3-8.2); eGFR 13.20
[2025-08-05 11:15] VITALS: BP 107/67
--- NOTE | 2025-08-05 11:59 | CM ---
Addendum entered by Bindu Moore RN 08/05/25 12:48:
Clinicals faxed to [facility] ([phone]).
Original Note:
Reviewed the chart notes. CM [facility] - no beds until after 08/11/2025. [facility] - [facility]. [place] will fax check list for CM to fax to their HD agency for review. Precert
will be required.
--- NOTE | 2025-08-05 12:03 | PN.CDI ---
CDI
- -
CDI:
Physician Documentation Request
Admit Date: 07/31/25 20:04
Dear Doctor Rekha,
Patient being managed for hypoglycemia and recurrent ascites/MASH liver cirrhosis.
Progress notes include a diagnosis of thrombocytopenia.
Hematology results:
Laboratory Tests
08/01/25 08/02/25 08/03/25
11:56 06:43 09:09
WBC 3.6 L 3.6 L 3.7 L
RBC 3.29 L 3.35 L 3.32 L
Plt Count 121 L 113 L 106 L
08/04/25 08/05/25
07:07 08:19
WBC 3.3 L 4.1 L
RBC 3.27 L 3.55 L
Plt Count 126 L 110 L
Please provide the appropriate diagnosis, that supports the above lab abnormalities and additional evaluation/ monitoring and/or treatment rendered:
Pancytopenia
Thrombocytopenia only
Other
Use of terms such as suspected, likely, concern for, or probable (associated with a specific diagnosis that is being evaluated, monitored, or treated as if it exists) are acceptable and can be coded in the inpatient setting, when documented at the
time of discharge.
Thank you,
Suad Rai Rn, BSN
CDI Specialist
tiger text
Please use your independent medical judgment in providing your response.
--- NOTE | 2025-08-05 12:37 | W.PN.HOSP.TC ---
Addendum entered and electronically signed by Rashid Da Silva MD 08/05/25 15:43:
[id number]
Addendum entered and electronically signed by Rashid Da Silva MD 08/05/25 12:42:
hyonatremia, mild
-cont hd
Original Note:
Today's Communication/Plan
-
F/u hepatology, PCP outpt; HD outpt
F/u labs within 1 week
Assessment / Plan
Assessment / Plan
#Hypoglycemic
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
� Educated on not skipping meals, including dinner; educated on latenight snack
� No obvious source of infection, for follow-up, trend fever curve, white count
#Recurrent ascites
#MASH liver cirrhosis
- not on diuretics due to anuric state
- Status post diagnostic and therapeutic paracentesis, no signs of SBP
- Will continue to monitor for recurrence of ascites post paracentesis
- IR consulted for Tx paracentesis on 08/04
#Hyponatremia
� Monitor with HD
#ESRD on HD MWF
- Unclear etiology
- Complicated by bone mineral disease for which she takes sevelamer and Cinacalcet
- Nephrology consulted to resume HD schedule
- Trend BMP, I's and O's, weight
#Cardiac murmur
- Has a 2/6 murmur best heard in the RUSB with honking quality
- Suspect calcific aortic stenosis, especially with ESRD history
- No signs of CHF or decompensation
- Recommend OP TTE and follow-up with cardiology
#Bleeding from HD access
#Mild thrombocytopenia
- Bleeding has improved since holding SQH
- Hemoglobin stable
#Chronic hypotension
- Associated with liver cirrhosis and hemodialysis
- Ordered midodrine 5 mg every 4 hours as needed
- Need to confirm home dose midodrine with facility
#RLE abrasion with weeping
#Chronic venous insufficiency
- Wound care
- Trend CBC and temperature curve
#Paroxysmal AF
- Per records, not currently on any anticoagulants or antiarrhythmic agent
- Will monitor here for signs of recurrence
#PAD s/p left BKA
#History of osteomyelitis
- Home regimen includes moderate intensity atorvastatin, not on antiplatelet agent
- States he had amputation for previous infection of his bones, received vancomycin at the time
#Left eye blindness
#Recent hip fracture
Diet: Standard renal
Thromboprophylaxis: SQ heparin
CODE STATUS: Full code
More than 30 minutes spent in discharge including
Final examination of the patient
Summarizing hospital stay
Instructions for continuing care to all relevant caregivers
Preparation of discharge records, prescriptions, and referral forms
Total time spent (in minutes): 36
Anticipated Discharge: Today
Subjective/Interval History
-
Date of Service: August 05, 2025
no acute events
Objective Data
-
Labs:
Laboratory Results
08/05/25
08:19
WBC 4.1 L
Hgb 10.7 L
Hct 32.3 L
Plt Count 110 L
Sodium 131 L
Potassium 5.0
Chloride 98
Carbon Dioxide 30
BUN 35 H
Creatinine 4.9 H*
Glucose 67 L
Calcium 7.3 L
Total Bilirubin 1.0
AST 28
ALT 12
Alkaline Phosphatase 148 H
Vital Signs:
Vital Signs
Temp Pulse Resp BP Pulse Ox
98.3 F 85 18 107/67 98
08/05/25 11:15 08/05/25 12:25 08/05/25 11:15 08/05/25 12:25 08/05/25 11:15
I&O
08/04/25 08/05/25 08/06/25
06:59 06:59 06:59
Intake Total 740 / 740 1020 / 1020
Output Total 0 / 0
Balance 740 / 740 1020 / 1020
Review of Systems
-
History Source: Patient
All other systems: Not reviewed unless documented
Physical Exam
-
General: Well Developed, Appears Chronically Ill and Obese
HEENT: Normocephalic, Atraumatic, Moist Mucous Membranes and Anicteric
Respiratory: Clear to Auscultation and Non Labored Respirations; Negative Accessory Resp Muscle Use
Cardiac: Regular Rhythm, S1/S2 and Murmur; Negative Rub or Gallop
GI: Soft, Nontender, Normal Bowel Sounds and Distended (Mild, fluid wave+)
Musculoskeletal: No Clubbing, No Cyanosis, No Edema and Other ((L) BKA)
Skin: Warm and Dry; Negative Rash
Neuro: AO x 3, Nonfocal/Grossly Intact and Central Nerve's Intact
Psych: Calm
Data Reviewed
-
Diagnostic Radiology: Report Reviewed by me
Labs: Labs Reviewed by me and Discussed with Patient
--- NOTE | 2025-08-05 12:42 | W.DS.TRANS ---
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
-
Discharge Instructions:
Discharge Diagnosis/Procedures Ascites
MASH liver cirrhosis
ESRD on HD MWF
Bleeding from HD access
Mild thrombocytopenia
Cardiac murmur
Diet Low Cholesterol,Other diet
Additional Diets No added salt, low potassium
Activity As tolerated,With assistance
Driving Restrictions No driving
Bathing Restrictions None
Blood Work BMP, mag, CBC with differential in 1 week after
discharge
Others Tests Follow-up with family doctor for echocardiogram
to assess your heart murmur
Other Services PT,OT
Instructions:
Stand-Alone Forms:
Changes to Home Medications: Yes
Discharge Medications:
DC Medications w/original date entered in [facility]
atorvastatin 20 mg tablet 20 mg PO QPM 08/01/25
bisacodyl 10 mg rectal suppository 10 mg NE DAILY PRN constipation if MOM is ineffec 08/01/25
carboxymethylcellulose sodium 0.5 % eye drops in a dropperette 1 drp ophthalmic (eye) QID PRN dry eyes 08/01/25
cinacalcet 30 mg tablet 30 mg PO DAILY 08/01/25
diclofenac sodium 3 % topical gel 1 applic topical BID 08/01/25
ferric citrate 210 mg iron tablet 420 mg PO TID GERD 08/01/25
lidocaine 4 % topical gel 1 applic topical DAILY 08/01/25
loperamide 2 mg tablet 2 mg PO Q8H PRN diarrhea 08/01/25
methocarbamol 500 mg tablet 500 mg PO QID PRN spasms 08/01/25
sevelamer HCl 800 mg tablet 800 mg PO TID nutritional supplement 08/01/25
tramadol 50 mg tablet 50 mg PO BID PRN moderate pain 08/01/25
white petrolatum (White Petroleum Jelly topical) 1 applic topical DAILY PRN preventative measure dry skin 08/01/25
midodrine 10 mg tablet 10 mg PO TID #90 tabs 08/02/25
miconazole nitrate 2 % topical powder (Miconazorb AF) 1 applic topical BID 30 days #85 grams 08/05/25
Home Medication Changes
miconazole nitrate 2 % topical powder (Miconazorb AF) 1 applic topical BID 30 days #85 grams 08/05/25
Pending Results: No
[2025-08-05 12:44] LABS: Glucose - Point of Care 97 mg/dl (70-99)
--- NOTE | 2025-08-05 12:51 | W.PN.NEPH.PH ---
Today's Communication / Plan
-
Dialysis tomorrow either here or at discharge facility
Assessment/Plan
-
55-year-old male past medical history of ESRD on hemodialysis Monday, Monday, Monday, liver cirrhosis secondary to NOLASCO, paroxysmal atrial fibrillation on Eliquis, chronic venous stasis, left eye blindness, left lower extremity amputation,
presenting with increasing shortness of breath with increased abdominal distention despite receiving dialysis. He required paracentesis 6 months ago at which time 7 L of fluid removed.
Impression.
ESRD Monday
NOLASCO
Anemia of chronic disease
Atrial fibrillation
Plan
Continue MWF HD schedule
Epogen with dialysis for hemoglobin goal greater than 10
Status post paracentesis, may require another prior to discharge.
No acute need for dialysis today
Possible discharge today
-
-
Date of Service: August 05, 2025
CC / HPI / ROS
-
Chief Complaint:
ESRD
History of Present Illness:
Presented with shortness of breath abdominal distention ascites status post paracentesis secondary to NOLASCO
ESRD on Monday schedule
Hemodynamically stable with current dry weight
Remains on sevelamer for hyperphosphatemia
Review of Systems:
No shortness of breath or chest pain
Increasing abdominal distention
Labs
-
Labs:
WBC 4.1 10^3/uL (4.8-10.8) L 08/05/25 08:19
RBC 3.55 10^6/uL (4.70-6.10) L 08/05/25 08:19
Hgb 10.7 g/dL (13.0-18.0) L 08/05/25 08:19
Hct 32.3 % (39.0-52.0) L 08/05/25 08:19
Plt Count 110 10^3/uL (130-400) L 08/05/25 08:19
Sodium 131 mmol/L (135-145) L 08/05/25 08:19
Potassium 5.0 mmol/L (3.5-5.1) 08/05/25 08:19
Chloride 98 mmol/L (98-107) 08/05/25 08:19
Carbon Dioxide 30 mmol/L (22-30) 08/05/25 08:19
BUN 35 mg/dl (9-20) H 08/05/25 08:19
Creatinine 4.9 mg/dL (0.7-1.3) H* 08/05/25 08:19
eGFR 13.20 08/05/25 08:19
Glucose 67 mg/dl (70-99) L 08/05/25 08:19
Calcium 7.3 mg/dl (8.4-10.2) L 08/05/25 08:19
Albumin 2.9 g/dl (3.5-5.0) L 08/05/25 08:19
Physical Exam
-
Vital Signs:
Vital Signs
Temp Pulse Resp BP Pulse Ox
98.3 F 85 18 107/67 98
08/05/25 11:15 08/05/25 12:25 08/05/25 11:15 08/05/25 12:25 08/05/25 11:15
Respiratory:: Bilateral: CTA
Lung Excursion:: Normal
Abdomen:: Distended, Nontender and Soft
Bowel Sounds:: Normal
Extremity Edema:: None: Bilateral:
[2025-08-05 15:05] VITALS: BP 96/52
[2025-08-05 16:54] LABS: Glucose - Point of Care 91 mg/dl (70-99)
[2025-08-05] MEDS: LIPITOR 20 MG PO (17:41)
[2025-08-05 19:00] VITALS: BP 87/58
[2025-08-05 21:37] LABS: Glucose - Point of Care 102 mg/dl (70-99)
[2025-08-05 23:00] VITALS: BP 96/62
[2025-08-06] MEDS: HEPARIN 5000 UNITS SC ×3 (00:02→23:26)
--- NOTE | 2025-08-06 02:21 | DOWNTIME ---
There was a [employer] Client Solution Coordinator Downtime on 08/06/2025 from 0100 to 08/06/2025 at 0215. Downtime documentation of patient's care, including medication administrations, has been reconciled in the electronic record per guidelines. Refer to the
patient's paper chart under the miscellaneous tab to see printed paper medication records and downtime forms.
[2025-08-06 03:25] VITALS: BP 100/63
[2025-08-06 07:00] VITALS: BP 101/59
[2025-08-06 07:44] LABS: Glucose - Point of Care 73 mg/dl (70-99)
[2025-08-06] MEDS: HEPARIN SC (07:57)
[2025-08-06] MEDS: DESENEX/MITRAZOL/ZEASORB 1 APPLIC TOPICAL ×2 (07:58→21:01)
[2025-08-06] MEDS: RENVELA PO (07:58)
--- NOTE | 2025-08-06 08:16 | CM ---
Addendum entered by Priyanka Motley 08/06/25 17:01:
update sent to [facility] with [facility] information, requested confirmation of acceptance so that I could start auth.
Addendum entered by Priyanka Motley 08/06/25 14:41:
Per Admissions at [facility] they will reach out to the [facility] and [facility] no longer has an HD bed for the patient. Patient will also need auth from Insurance when bed confirmed. CM updated physician as well. CM will continue to follow for
discharge planning needs.
Plan; SNF and patient will need auth when bed confirmed.
Addendum entered by Priyanka Motley 08/06/25 14:12:
CM confirmed information faxed to and called and left follow up message. CM called to [facility]; patient had previously been there for confirmation of bed not being available.
Original Note:
NO current SNF/HD beds available. Pending possible bed from [facility], will need authorization. CM will continue to follow for discharge needs.
Plan;SNF/HD
[2025-08-06 08:27] LABS: Hematocrit 32.9 % (39.0-52.0); Hemoglobin 10.5 g/dL (13.0-18.0); Mean Corp Hgb Conc. 31.9 g/dL (33.0-37.0); Mean Corpuscular Volume 92.7 fL (80.0-94.0); Platelet Count 125 10^3/uL (130-400); Red Cell Dist. Width 19.9 % (11.5-14.5)
[2025-08-06 09:04] VITALS: BMI 35.1
[2025-08-06 09:10] LABS: ALT (SGPT) 11 U/L (0-50); AST (SGOT) 26 U/L (17-59); Albumin 2.9 g/dl (3.5-5.0); Alkaline Phosphatase 141 U/L (38-126); Blood Urea Nitrogen 41 mg/dl (9-20); Calcium 7.3 mg/dl (8.4-10.2); Carbon Dioxide 28 mmol/L (22-30); Estimated Creatinine Clearance 19 ml/min; Glucose 73 mg/dl (70-99); Potassium 5.7 mmol/L (3.5-5.1); Sodium 135 mmol/L (135-145); Total Protein 6.6 g/dl (6.3-8.2); eGFR 10.56
[2025-08-06 09:21] LABS: Chloride 99 mmol/L (98-107)
[2025-08-06] MEDS: RETACRIT 4000 UNITS IV (09:26)
[2025-08-06] MEDS: FLEXBUMIN 25% FOR HEMODIALYSIS 12.5 GRAMS IV ×2 (10:36→11:20)
[2025-08-06] MEDS: MANNITOL 25% 12.5 GRAMS IV ×2 (10:36→11:20)
[2025-08-06 11:00] VITALS: BP 86/51
--- NOTE | 2025-08-06 11:08 | W.PN.NEPH.HD ---
Assessment
-
Tolerating dialysis with midodrine and 4 L ultrafiltration
Progress Note - Hemodialysis
-
Date of Service: August 06, 2025
Duration: 30 minutes and 3 hours
Potassium Bath: 2
Calcium Bath: 2.5
Opti-Dialyzer: 160
Ultrafiltration: Other
Blood Flow: 400
Dialysate Flow: 600
Heparin: none
EPO: 4000
[2025-08-06 12:08] LABS: Glucose - Point of Care 93 mg/dl (70-99)
[2025-08-06] MEDS: RENVELA 800 MG PO ×2 (12:46→17:23)
[2025-08-06] MEDS: SENSIPAR 30 MG PO (12:46)
--- NOTE | 2025-08-06 13:43 | W.PN.HOSP.TC ---
Addendum entered and electronically signed by Rashid Da Silva MD 08/06/25 15:46:
Pancytopenia
Original Note:
Today's Communication/Plan
-
Disposition planning
Increase midodrine
Assessment / Plan
Assessment / Plan
#Hypoglycemic
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
� Educated on not skipping meals, including dinner; educated on latenight snack
� No obvious source of infection, for follow-up, trend fever curve, white count
#Recurrent ascites
#MASH liver cirrhosis
- not on diuretics due to anuric state
- Status post diagnostic and therapeutic paracentesis, no signs of SBP
- Will continue to monitor for recurrence of ascites post paracentesis
- IR consulted for Tx paracentesis on 08/04
#Hyponatremia
� Monitor with HD
#ESRD on HD MWF
#Hyperkalemia, receiving dialysis
- Unclear etiology
- Complicated by bone mineral disease for which she takes sevelamer and Cinacalcet
- Nephrology consulted to resume HD schedule
- Trend BMP, I's and O's, weight
#Cardiac murmur
- Has a 2/6 murmur best heard in the RUSB with honking quality
- Suspect calcific aortic stenosis, especially with ESRD history
- No signs of CHF or decompensation
- Recommend OP TTE and follow-up with cardiology
#Bleeding from HD access
#Mild thrombocytopenia
- Bleeding has improved since holding SQH
- Hemoglobin stable
#Chronic hypotension
- Associated with liver cirrhosis and hemodialysis
- patient was on 50 mg 3 times daily midodrine in the past, increased to this.
- Need to confirm home dose midodrine with facility
#RLE abrasion with weeping
#Chronic venous insufficiency
- Wound care
- Trend CBC and temperature curve
#Paroxysmal AF
- Per records, not currently on any anticoagulants or antiarrhythmic agent
- Will monitor here for signs of recurrence
#PAD s/p left BKA
#History of osteomyelitis
- Home regimen includes moderate intensity atorvastatin, not on antiplatelet agent
- States he had amputation for previous infection of his bones, received vancomycin at the time
#Left eye blindness
#Recent hip fracture
Diet: Standard renal
Thromboprophylaxis: SQ heparin
CODE STATUS: Full code
More than 30 minutes spent in discharge including
Final examination of the patient
Summarizing hospital stay
Instructions for continuing care to all relevant caregivers
Preparation of discharge records, prescriptions, and referral forms
Total time spent (in minutes): 36
Anticipated Discharge: Today
Subjective/Interval History
-
Date of Service: August 06, 2025
No events overnight
Objective Data
-
Labs:
Laboratory Results
08/06/25
07:20
WBC 4.0 L
Hgb 10.5 L
Hct 32.9 L
Plt Count 125 L
Sodium 135
Potassium 5.7 H
Chloride 99
Carbon Dioxide 28
BUN 41 H
Creatinine 5.9 H*
Glucose 73
Calcium 7.3 L
Total Bilirubin 0.9
AST 26
ALT 11
Alkaline Phosphatase 141 H
Vital Signs:
Vital Signs
Temp Pulse Resp BP Pulse Ox
97.5 F 78 20 86/51 98
08/06/25 11:00 08/06/25 12:46 08/06/25 11:00 08/06/25 12:46 08/06/25 12:11
I&O
08/05/25 08/06/25 08/07/25
06:59 06:59 06:59
Intake Total 1020 / 1020 1100 / 1100
Output Total 0 / 0 0 / 0
Balance 1020 / 1020 1100 / 1100
Review of Systems
-
History Source: Patient
All other systems: Not reviewed unless documented
Data Reviewed
-
Diagnostic Radiology: Report Reviewed by me
Labs: Labs Reviewed by me and Discussed with Patient
[2025-08-06 15:00] VITALS: BP 96/61
[2025-08-06] MEDS: LIPITOR 20 MG PO (17:23)
[2025-08-06 17:44] LABS: Glucose - Point of Care 79 mg/dl (70-99)
[2025-08-06 19:10] VITALS: BP 110/61
[2025-08-06 21:26] LABS: Glucose - Point of Care 92 mg/dl (70-99)
[2025-08-06 22:48] VITALS: BP 87/58
[2025-08-06] MEDS: IMODIUM 2 MG PO (23:29)
[2025-08-07 00:46] LABS: Glucose - Point of Care 80 mg/dl (70-99)
[2025-08-07 03:11] VITALS: BP 99/49
[2025-08-07 06:00] VITALS: BMI 34.7
[2025-08-07 07:30] VITALS: BP 104/59
[2025-08-07 07:31] LABS: Glucose - Point of Care 66 mg/dl (70-99)
[2025-08-07 07:47] LABS: ALT (SGPT) 11 U/L (0-50); AST (SGOT) 23 U/L (17-59); Albumin 2.8 g/dl (3.5-5.0); Alkaline Phosphatase 139 U/L (38-126); Blood Urea Nitrogen 31 mg/dl (9-20); Calcium 7.3 mg/dl (8.4-10.2); Carbon Dioxide 29 mmol/L (22-30); Chloride 99 mmol/L (98-107); Estimated Creatinine Clearance 24 ml/min; Glucose 74 mg/dl (70-99); Potassium 5.0 mmol/L (3.5-5.1); Sodium 131 mmol/L (135-145); Total Protein 6.5 g/dl (6.3-8.2); eGFR 13.53
[2025-08-07 08:35] LABS: Glucose - Point of Care 81 mg/dl (70-99)
[2025-08-07 08:49] LABS: Hematocrit 31.1 % (39.0-52.0); Hemoglobin 10.2 g/dL (13.0-18.0); Mean Corp Hgb Conc. 32.8 g/dL (33.0-37.0); Mean Corpuscular Volume 90.9 fL (80.0-94.0); Platelet Count 105 10^3/uL (130-400); Red Cell Dist. Width 19.7 % (11.5-14.5)
--- NOTE | 2025-08-07 09:16 | CM ---
Addendum entered by Priyanka Motley 08/07/25 16:29:
updated clinicals from HD faxed to [facility] admissions to share PASSR with facility. CM will continue to follow for discharge planning needs.
Addendum entered by Mabel Rios 08/07/25 10:31:
Referral sent via [employer], pended reference # [id number]
clinicals faxed to [phone]
corrected NPI# blair Torres [id number]
Addendum entered by Priyanka Motley 08/07/25 09:39:
started auth with [employer] and will fax clinical information. Per Annie at [facility] they will also need the HD flow sheets from the last 7 days.
Original Note:
Patient accepted by [facility] and CM will initiate auth with [employer]. CM will continue to follow for discharge planning needs.
Plan; transfer when Auth approved.
for [facility]
[phone] Dr. Eren Torres
[2025-08-07] MEDS: SENSIPAR 30 MG PO (09:59)
[2025-08-07] MEDS: HEPARIN 5000 UNITS SC (09:59)
[2025-08-07] MEDS: RENVELA 800 MG PO ×3 (09:59→17:54)
[2025-08-07] MEDS: DESENEX/MITRAZOL/ZEASORB 1 APPLIC TOPICAL ×2 (10:00→20:52)
[2025-08-07 11:15] VITALS: BP 92/49
[2025-08-07 11:28] LABS: Glucose - Point of Care 113 mg/dl (70-99)
--- NOTE | 2025-08-07 12:30 | W.PN.HOSP.TC ---
Today's Communication/Plan
-
HD
F/u hepatology outpt
F/u labs with HD
F/u pcp within 1 week
Assessment / Plan
Assessment / Plan
#Hypoglycemic, improved
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
� Educated on not skipping meals, including dinner; educated on latenight snack
� No obvious source of infection, for follow-up, trend fever curve, white count
#Recurrent ascites
#MASH liver cirrhosis
- not on diuretics due to anuric state
- Status post diagnostic and therapeutic paracentesis, no signs of SBP
- Will continue to monitor for recurrence of ascites post paracentesis
- IR consulted for Tx paracentesis on 08/04
#Hyponatremia
� Monitor with HD
�Follow-up outpatient
#ESRD on HD MWF
#Hyperkalemia, receiving dialysis
- Unclear etiology
- Complicated by bone mineral disease for which she takes sevelamer and Cinacalcet
- Nephrology consulted to resume HD schedule
- Trend BMP, I's and O's, weight
#Cardiac murmur
- Has a 2/6 murmur best heard in the RUSB with honking quality
- Suspect calcific aortic stenosis, especially with ESRD history
- No signs of CHF or decompensation
- Recommend OP TTE and follow-up with cardiology
#Bleeding from HD access
#Mild thrombocytopenia
- Bleeding has improved since holding SQH
- Hemoglobin stable
#Chronic hypotension
- Associated with liver cirrhosis and hemodialysis
- patient was on 15 mg 3 times daily midodrine in the past, increased to this.
- Need to confirm home dose midodrine with facility
#RLE abrasion with weeping
#Chronic venous insufficiency
- Wound care
- Trend CBC and temperature curve
#Paroxysmal AF
- Resume Eliquis, patient states he was on this, 5 mg Eliquis twice daily
- Will monitor here for signs of recurrence
#PAD s/p left BKA
#History of osteomyelitis
- Home regimen includes moderate intensity atorvastatin, not on antiplatelet agent
- States he had amputation for previous infection of his bones, received vancomycin at the time
#Left eye blindness
#Recent hip fracture
Diet: Standard renal
Thromboprophylaxis: SQ heparin
CODE STATUS: Full code
More than 30 minutes spent in discharge including
Final examination of the patient
Summarizing hospital stay
Instructions for continuing care to all relevant caregivers
Preparation of discharge records, prescriptions, and referral forms
Total time spent (in minutes): 37
Anticipated Discharge: Today
Subjective/Interval History
-
Date of Service: August 07, 2025
No acute events overnight
Objective Data
-
Labs:
Laboratory Results
08/07/25
06:42
WBC 4.0 L
Hgb 10.2 L
Hct 31.1 L
Plt Count 105 L
Sodium 131 L
Potassium 5.0
Chloride 99
Carbon Dioxide 29
BUN 31 H
Creatinine 4.8 H*
Glucose 74
Calcium 7.3 L
Total Bilirubin 1.0
AST 23
ALT 11
Alkaline Phosphatase 139 H
Vital Signs:
Vital Signs
Temp Pulse Resp BP Pulse Ox
98.2 F 64 18 104/59 96
08/07/25 07:30 08/07/25 09:55 08/07/25 07:30 08/07/25 09:55 08/07/25 09:00
I&O
08/06/25 08/07/25 08/08/25
06:59 06:59 06:59
Intake Total 1100 / 1100 900 / 900
Output Total 0 / 0 0 / 0
Balance 1100 / 1100 900 / 900
Review of Systems
-
History Source: Patient
All other systems: Not reviewed unless documented
Data Reviewed
-
Diagnostic Radiology: Report Reviewed by me
Labs: Labs Reviewed by me and Discussed with Patient
--- NOTE | 2025-08-07 12:33 | W.DS.TRANS ---
DC Summary - [employer]
-
Discharge Instructions:
Discharge Diagnosis/Procedures Ascites
MASH liver cirrhosis
ESRD on HD MWF
Bleeding from HD access
Mild thrombocytopenia
Cardiac murmur
Diet Low Cholesterol,Other diet
Additional Diets No added salt, low potassium
Activity As tolerated,With assistance
Driving Restrictions No driving
Bathing Restrictions None
Blood Work BMP, mag, CBC with differential in 1 week after
discharge
Others Tests Follow-up with family doctor for echocardiogram
to assess your heart murmur
Other Services PT,OT
Instructions:
Stand-Alone Forms:
Changes to Home Medications: Yes
Discharge Medications:
DC Medications w/original date entered in [facility]
atorvastatin 20 mg tablet 20 mg PO QPM 08/01/25
bisacodyl 10 mg rectal suppository 10 mg [place] DAILY PRN constipation if MOM is ineffec 08/01/25
carboxymethylcellulose sodium 0.5 % eye drops in a dropperette 1 drp ophthalmic (eye) QID PRN dry eyes 08/01/25
cinacalcet 30 mg tablet 30 mg PO DAILY 08/01/25
diclofenac sodium 3 % topical gel 1 applic topical BID 08/01/25
ferric citrate 210 mg iron tablet 420 mg PO TID GERD 08/01/25
lidocaine 4 % topical gel 1 applic topical DAILY 08/01/25
loperamide 2 mg tablet 2 mg PO Q8H PRN diarrhea 08/01/25
methocarbamol 500 mg tablet 500 mg PO QID PRN spasms 08/01/25
sevelamer HCl 800 mg tablet 800 mg PO TID nutritional supplement 08/01/25
tramadol 50 mg tablet 50 mg PO BID PRN moderate pain 08/01/25
white petrolatum (White Petroleum Jelly topical) 1 applic topical DAILY PRN preventative measure dry skin 08/01/25
miconazole nitrate 2 % topical powder (Miconazorb AF) 1 applic topical BID 30 days #85 grams 08/05/25
apixaban 5 mg tablet (Eliquis) 5 mg PO BID #0 tabs 08/07/25
midodrine 5 mg tablet 15 mg (3 x 5 mg) PO TID@0800,1300,1800 #0 tabs 08/07/25
Home Medication Changes
miconazole nitrate 2 % topical powder (Miconazorb AF) 1 applic topical BID 30 days #85 grams 08/05/25
Pending Results: No
[2025-08-07] MEDS: ELIQUIS 5 MG PO ×2 (13:39→20:52)
--- NOTE | 2025-08-07 13:57 | W.PN.NEPH.PH ---
Today's Communication / Plan
-
Dialysis tomorrow
Assessment/Plan
-
55-year-old male past medical history of ESRD on hemodialysis Monday, Monday, Monday, liver cirrhosis secondary to NOLASCO, paroxysmal atrial fibrillation on Eliquis, chronic venous stasis, left eye blindness, left lower extremity amputation,
presenting with increasing shortness of breath with increased abdominal distention despite receiving dialysis. He required paracentesis 6 months ago at which time 7 L of fluid removed.
Impression.
ESRD Monday
NOLASCO
Anemia of chronic disease
Atrial fibrillation
Plan
Continue MWF HD schedule
Epogen with dialysis for hemoglobin goal greater than 10
Status post paracentesis, may require another prior to discharge.
No acute need for dialysis today
-
-
Date of Service: August 07, 2025
CC / HPI / ROS
-
Chief Complaint:
ESRD
History of Present Illness:
Presented with shortness of breath abdominal distention ascites status post paracentesis secondary to NOLASCO
ESRD on Monday schedule
Hemodynamically stable with current dry weight
Remains on sevelamer for hyperphosphatemia
Review of Systems:
No shortness of breath or chest pain
Labs
-
Labs:
WBC 4.0 10^3/uL (4.8-10.8) L 08/07/25 06:42
RBC 3.42 10^6/uL (4.70-6.10) L 08/07/25 06:42
Hgb 10.2 g/dL (13.0-18.0) L 08/07/25 06:42
Hct 31.1 % (39.0-52.0) L 08/07/25 06:42
Plt Count 105 10^3/uL (130-400) L 08/07/25 06:42
Sodium 131 mmol/L (135-145) L 08/07/25 06:42
Potassium 5.0 mmol/L (3.5-5.1) 08/07/25 06:42
Chloride 99 mmol/L (98-107) 08/07/25 06:42
Carbon Dioxide 29 mmol/L (22-30) 08/07/25 06:42
BUN 31 mg/dl (9-20) H 08/07/25 06:42
Creatinine 4.8 mg/dL (0.7-1.3) H* 08/07/25 06:42
eGFR 13.53 08/07/25 06:42
Glucose 74 mg/dl (70-99) 08/07/25 06:42
Calcium 7.3 mg/dl (8.4-10.2) L 08/07/25 06:42
Albumin 2.8 g/dl (3.5-5.0) L 08/07/25 06:42
Physical Exam
-
Vital Signs:
Vital Signs
Temp Pulse Resp BP Pulse Ox
97.4 F 91 16 92/49 97
08/07/25 11:15 08/07/25 13:39 08/07/25 11:15 08/07/25 13:39 08/07/25 11:15
Respiratory:: Bilateral: CTA
Lung Excursion:: Normal
Abdomen:: Distended, Nontender and Soft
Bowel Sounds:: Normal
Extremity Edema:: None: Bilateral:
[2025-08-07 15:15] VITALS: BP 99/53
[2025-08-07 17:20] LABS: Glucose - Point of Care 116 mg/dl (70-99)
--- NOTE | 2025-08-07 17:32 | CM ---
Received call from [facility] stating their Marking Machine Operator reviewed the request for SNF and there is an intent to deny as they feel the patient does not meet Skilled Level of Care per CMS guidelines. She stated a PTP can be conducted by calling
[phone] option 2 by 12 noon tomorrow 08/08/25. Dr. Ortega was the [facility] physician that reviewed this request. If we choose not to perform the PTP, it will be denied and then an Expedited Member Appeal can be requested by calling
. If we should have any questions she directed us back to Bianca, our [facility] reviewer, at [phone]. Update to CM
[2025-08-07] MEDS: LIPITOR 20 MG PO (17:54)
[2025-08-07 20:10] VITALS: BP 104/62
[2025-08-07 22:07] LABS: Glucose - Point of Care 79 mg/dl (70-99)
[2025-08-07 23:04] VITALS: BP 100/58
[2025-08-07] MEDS: IMODIUM 2 MG PO (23:57)
[2025-08-08] MEDS: ZOFRAN 4 MG IV (00:20)
[2025-08-08 03:30] VITALS: BP 95/50
[2025-08-08 05:03] VITALS: BMI 35.2
[2025-08-08 06:27] LABS: Hematocrit 31.0 % (39.0-52.0); Hemoglobin 10.6 g/dL (13.0-18.0); Mean Corp Hgb Conc. 34.2 g/dL (33.0-37.0); Mean Corpuscular Volume 88.3 fL (80.0-94.0); Platelet Count 106 10^3/uL (130-400); Red Cell Dist. Width 19.8 % (11.5-14.5)
[2025-08-08 06:54] LABS: ALT (SGPT) 12 U/L (0-50); AST (SGOT) 27 U/L (17-59); Albumin 3.0 g/dl (3.5-5.0); Alkaline Phosphatase 138 U/L (38-126); Blood Urea Nitrogen 39 mg/dl (9-20); Calcium 7.3 mg/dl (8.4-10.2); Carbon Dioxide 29 mmol/L (22-30); Chloride 98 mmol/L (98-107); Estimated Creatinine Clearance 21 ml/min; Glucose 78 mg/dl (70-99); Potassium 5.3 mmol/L (3.5-5.1); Sodium 134 mmol/L (135-145); Total Protein 6.7 g/dl (6.3-8.2); eGFR 11.49
[2025-08-08 07:00] VITALS: BP 116/60
[2025-08-08] MEDS: RENVELA 800 MG PO ×3 (08:10→17:19)
[2025-08-08] MEDS: SENSIPAR 30 MG PO (08:10)
[2025-08-08] MEDS: DESENEX/MITRAZOL/ZEASORB 1 APPLIC TOPICAL ×2 (08:11→20:38)
[2025-08-08 08:23] LABS: Glucose - Point of Care 71 mg/dl (70-99)
--- NOTE | 2025-08-08 09:07 | W.PN.NEPH.HD ---
Assessment
-
Patient seen on dialysis
Systolic blood pressure 111 at current UF
Intradialytic weight gains are way too high especially given persistent hypotension requiring midodrine support
Progress Note - Hemodialysis
-
Date of Service: August 08, 2025
Duration: 30 minutes and 3 hours
Potassium Bath: 3
Calcium Bath: 2.5
Opti-Dialyzer: 160
Ultrafiltration: EDW (3.5)
Blood Flow: 400
Dialysate Flow: 600
Heparin: None
EPO: 10,000
[2025-08-08] MEDS: RETACRIT 10000 UNITS IV (09:25)
[2025-08-08] MEDS: MANNITOL 25% 12.5 GRAMS IV (09:33)
[2025-08-08 11:00] VITALS: BP 100/64
[2025-08-08 12:26] LABS: Glucose - Point of Care 83 mg/dl (70-99)
[2025-08-08] MEDS: ELIQUIS 5 MG PO ×2 (12:57→20:38)
--- NOTE | 2025-08-08 13:04 | W.PN.HOSP.TC ---
Today's Communication/Plan
-
HD
disposition planning
Assessment / Plan
Assessment / Plan
#Hypoglycemic, improved
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
� Educated on not skipping meals, including dinner; educated on latenight snack
� No obvious source of infection, for follow-up, trend fever curve, white count
#Recurrent ascites
#MASH liver cirrhosis
- not on diuretics due to anuric state
- Status post diagnostic and therapeutic paracentesis, no signs of SBP
- Will continue to monitor for recurrence of ascites post paracentesis
- IR consulted for Tx paracentesis on 08/04
#Hyponatremia
� Monitor with HD
�Follow-up outpatient
#ESRD on HD MWF
#Hyperkalemia, receiving dialysis
- Unclear etiology
- Complicated by bone mineral disease for which she takes sevelamer and Cinacalcet
- Nephrology consulted to resume HD schedule
- Trend BMP, I's and O's, weight
#Cardiac murmur
- Has a 2/6 murmur best heard in the RUSB with honking quality
- Suspect calcific aortic stenosis, especially with ESRD history
- No signs of CHF or decompensation
- Recommend OP TTE and follow-up with cardiology
#Bleeding from HD access
#Mild thrombocytopenia
- Bleeding has improved since holding SQH
- Hemoglobin stable
#Chronic hypotension
- Associated with liver cirrhosis and hemodialysis
- patient was on 15 mg 3 times daily midodrine in the past, increased to this.
- Need to confirm home dose midodrine with facility
#RLE abrasion with weeping
#Chronic venous insufficiency
- Wound care
- Trend CBC and temperature curve
#Paroxysmal AF
- Resume Eliquis, patient states he was on this, 5 mg Eliquis twice daily
- Will monitor here for signs of recurrence
#PAD s/p left BKA
#History of osteomyelitis
- Home regimen includes moderate intensity atorvastatin, not on antiplatelet agent
- States he had amputation for previous infection of his bones, received vancomycin at the time
#Left eye blindness
#Recent hip fracture
Diet: Standard renal
Thromboprophylaxis: SQ heparin
CODE STATUS: Full code
More than 30 minutes spent in discharge including
Final examination of the patient
Summarizing hospital stay
Instructions for continuing care to all relevant caregivers
Preparation of discharge records, prescriptions, and referral forms
Total time spent (in minutes): 35
Anticipated Discharge: Today
Subjective/Interval History
-
Date of Service: August 08, 2025
No acute events overnight
Objective Data
-
Labs:
Laboratory Results
08/08/25
05:28
WBC 4.3 L
Hgb 10.6 L
Hct 31.0 L
Plt Count 106 L
Sodium 134 L
Potassium 5.3 H
Chloride 98
Carbon Dioxide 29
BUN 39 H
Creatinine 5.5 H*
Glucose 78
Calcium 7.3 L
Total Bilirubin 0.9
AST 27
ALT 12
Alkaline Phosphatase 138 H
Vital Signs:
Vital Signs
Temp Pulse Resp BP Pulse Ox
97.7 F 85 18 100/64 96
08/08/25 11:00 08/08/25 11:00 08/08/25 11:00 08/08/25 11:00 08/08/25 11:00
I&O
08/07/25 08/08/25 08/09/25
06:59 06:59 06:59
Intake Total 900 / 900 960 / 960
Output Total 0 / 0
Balance 900 / 900 960 / 960
Review of Systems
-
History Source: Patient
All other systems: Not reviewed unless documented
Data Reviewed
-
Diagnostic Radiology: Report Reviewed by me
Labs: Labs Reviewed by me and Discussed with Patient
[2025-08-08 15:00] VITALS: BP 96/55
--- NOTE | 2025-08-08 17:12 | CM ---
CM spoke at length with Dianna at [facility], they are not able to accept patient back at this time and per Annie from [facility] they will accept patient when [facility] has confirmed acceptance. Most likely Monday. Facility updated that
patient authorization was denied. CM reached out to physician to update. Patient updated. CM will continue to follow for discharge planning needs.
Plan; pending facility acceptance; transfer as LTC patient with [facility] pending.
[2025-08-08 17:15] LABS: Glucose - Point of Care 88 mg/dl (70-99)
[2025-08-08] MEDS: LIPITOR 20 MG PO (17:19)
[2025-08-08 19:09] VITALS: BP 100/59
[2025-08-08 22:38] LABS: Glucose - Point of Care 106 mg/dl (70-99)
[2025-08-08 23:33] VITALS: BP 104/59
[2025-08-09 03:27] VITALS: BP 94/41
[2025-08-09 06:00] VITALS: BMI 34.6
[2025-08-09 07:00] VITALS: BP 88/48
[2025-08-09 07:36] LABS: Hematocrit 30.9 % (39.0-52.0); Hemoglobin 10.1 g/dL (13.0-18.0); Mean Corp Hgb Conc. 32.7 g/dL (33.0-37.0); Mean Corpuscular Volume 90.9 fL (80.0-94.0); Platelet Count 94 10^3/uL (130-400); Red Cell Dist. Width 19.3 % (11.5-14.5)
[2025-08-09 08:03] LABS: ALT (SGPT) 12 U/L (0-50); AST (SGOT) 25 U/L (17-59); Albumin 2.9 g/dl (3.5-5.0); Alkaline Phosphatase 144 U/L (38-126); Blood Urea Nitrogen 31 mg/dl (9-20); Calcium 7.4 mg/dl (8.4-10.2); Carbon Dioxide 29 mmol/L (22-30); Chloride 98 mmol/L (98-107); Estimated Creatinine Clearance 26 ml/min; Glucose 80 mg/dl (70-99); Potassium 4.7 mmol/L (3.5-5.1); Sodium 130 mmol/L (135-145); Total Protein 6.8 g/dl (6.3-8.2); eGFR 15.44
[2025-08-09 08:19] LABS: Glucose - Point of Care 73 mg/dl (70-99)
[2025-08-09] MEDS: DESENEX/MITRAZOL/ZEASORB 1 APPLIC TOPICAL ×2 (09:01→20:57)
[2025-08-09] MEDS: RENVELA 800 MG PO (09:02)
[2025-08-09] MEDS: ELIQUIS 5 MG PO ×2 (09:02→20:56)
[2025-08-09] MEDS: SENSIPAR 30 MG PO (09:02)
--- NOTE | 2025-08-09 09:47 | W.PN.NEPH.PH ---
Today's Communication / Plan
-
next HD Monday
Assessment/Plan
-
55-year-old male past medical history of ESRD on hemodialysis Monday, Monday, Monday, liver cirrhosis secondary to NOLASCO, paroxysmal atrial fibrillation on Eliquis, chronic venous stasis, left eye blindness, left lower extremity amputation,
presenting with increasing shortness of breath with increased abdominal distention despite receiving dialysis. He required paracentesis 6 months ago at which time 7 L of fluid removed.
Impression.
ESRD Monday
NOLASCO
Anemia of chronic disease
Atrial fibrillation
Plan
Continue MWF HD schedule
Epogen with dialysis for hemoglobin goal greater than 10
Status post paracentesis, may require another prior to discharge.
No acute need for dialysis today
-
-
Date of Service: August 09, 2025
CC / HPI / ROS
-
Chief Complaint:
ESRD
History of Present Illness:
Presented with shortness of breath abdominal distention ascites status post paracentesis secondary to NOLASCO
ESRD on Monday schedule
Hemodynamically stable with current dry weight
Remains on sevelamer for hyperphosphatemia
Review of Systems:
No shortness of breath or chest pain
Labs
-
Labs:
WBC 4.1 10^3/uL (4.8-10.8) L 08/09/25 07:06
RBC 3.40 10^6/uL (4.70-6.10) L 08/09/25 07:06
Hgb 10.1 g/dL (13.0-18.0) L 08/09/25 07:06
Hct 30.9 % (39.0-52.0) L 08/09/25 07:06
Plt Count 94 10^3/uL (130-400) L 08/09/25 07:06
Sodium 130 mmol/L (135-145) L 08/09/25 07:06
Potassium 4.7 mmol/L (3.5-5.1) 08/09/25 07:06
Chloride 98 mmol/L (98-107) 08/09/25 07:06
Carbon Dioxide 29 mmol/L (22-30) 08/09/25 07:06
BUN 31 mg/dl (9-20) H 08/09/25 07:06
Creatinine 4.3 mg/dL (0.7-1.3) H* 08/09/25 07:06
eGFR 15.44 08/09/25 07:06
Glucose 80 mg/dl (70-99) 08/09/25 07:06
Calcium 7.4 mg/dl (8.4-10.2) L 08/09/25 07:06
Albumin 2.9 g/dl (3.5-5.0) L 08/09/25 07:06
Physical Exam
-
Vital Signs:
Vital Signs
Temp Pulse Resp BP Pulse Ox
97.4 F 90 18 88/48 94
08/09/25 07:00 08/09/25 07:00 08/09/25 07:00 08/09/25 07:00 08/09/25 07:00
Respiratory:: Bilateral: CTA
Lung Excursion:: Normal
Abdomen:: Distended, Nontender and Soft
Bowel Sounds:: Normal
Extremity Edema:: None: Bilateral:
[2025-08-09 11:00] VITALS: BP 96/50
[2025-08-09 12:43] LABS: Glucose - Point of Care 80 mg/dl (70-99)
[2025-08-09] MEDS: RENVELA PO (12:54)
--- NOTE | 2025-08-09 13:01 | W.PN.HOSP.TC ---
Addendum entered and electronically signed by Rashid Da Silva MD 08/09/25 13:15:
entered in error
Original Note:
Today's Communication/Plan
-
HD
disposition planning
Assessment / Plan
Assessment / Plan
#Hypoglycemic, improved
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
� Educated on not skipping meals, including dinner; educated on latenight snack
� No obvious source of infection, for follow-up, trend fever curve, white count
#Recurrent ascites
#MASH liver cirrhosis
- not on diuretics due to anuric state
- Status post diagnostic and therapeutic paracentesis, no signs of SBP
- Will continue to monitor for recurrence of ascites post paracentesis
- IR consulted for Tx paracentesis on 08/04
#Hyponatremia
� Monitor with HD
�Follow-up outpatient
#ESRD on HD MWF
#Hyperkalemia, receiving dialysis
- Unclear etiology
- Complicated by bone mineral disease for which she takes sevelamer and Cinacalcet
- Nephrology consulted to resume HD schedule
- Trend BMP, I's and O's, weight
#Cardiac murmur
- Has a 2/6 murmur best heard in the RUSB with honking quality
- Suspect calcific aortic stenosis, especially with ESRD history
- No signs of CHF or decompensation
- Recommend OP TTE and follow-up with cardiology
#Bleeding from HD access
#Mild thrombocytopenia
- Bleeding has improved since holding SQH
- Hemoglobin stable
#Chronic hypotension
- Associated with liver cirrhosis and hemodialysis
- patient was on 15 mg 3 times daily midodrine in the past, increased to this.
- Need to confirm home dose midodrine with facility
#RLE abrasion with weeping
#Chronic venous insufficiency
- Wound care
- Trend CBC and temperature curve
#Paroxysmal AF
- Resume Eliquis, patient states he was on this, 5 mg Eliquis twice daily
- Will monitor here for signs of recurrence
#PAD s/p left BKA
#History of osteomyelitis
- Home regimen includes moderate intensity atorvastatin, not on antiplatelet agent
- States he had amputation for previous infection of his bones, received vancomycin at the time
#Left eye blindness
#Recent hip fracture
Diet: Standard renal
Thromboprophylaxis: SQ heparin
CODE STATUS: Full code
Anticipated Discharge: Within 24 hours
Subjective/Interval History
-
Date of Service: August 09, 2025
no acute events overnight
Objective Data
-
Labs:
Laboratory Results
08/09/25
07:06
WBC 4.1 L
Hgb 10.1 L
Hct 30.9 L
Plt Count 94 L
Sodium 130 L
Potassium 4.7
Chloride 98
Carbon Dioxide 29
BUN 31 H
Creatinine 4.3 H*
Glucose 80
Calcium 7.4 L
Total Bilirubin 0.9
AST 25
ALT 12
Alkaline Phosphatase 144 H
Vital Signs:
Vital Signs
Temp Pulse Resp BP Pulse Ox
97.4 F 82 18 96/50 97
08/09/25 07:00 08/09/25 12:54 08/09/25 07:00 08/09/25 12:54 08/09/25 10:00
I&O
08/08/25 08/09/25 08/10/25
06:59 06:59 06:59
Intake Total 960 / 960 1080 / 1080
Output Total 0 / 0
Balance 960 / 960 1080 / 1080
Review of Systems
-
History Source: Patient
All other systems: Not reviewed unless documented
Data Reviewed
-
Diagnostic Radiology: Report Reviewed by me
Labs: Labs Reviewed by me and Discussed with Patient
[2025-08-09 15:00] VITALS: BP 89/53
[2025-08-09 16:57] LABS: Glucose - Point of Care 97 mg/dl (70-99)
[2025-08-09] MEDS: LIPITOR 20 MG PO (17:01)
[2025-08-09] MEDS: RENVELA 1600 MG PO (18:38)
[2025-08-09 19:25] VITALS: BP 91/46
[2025-08-09 21:50] LABS: Glucose - Point of Care 81 mg/dl (70-99)
[2025-08-09 23:35] VITALS: BP 93/51
[2025-08-10 03:30] VITALS: BP 101/58
[2025-08-10 06:00] VITALS: BMI 34.7
[2025-08-10 08:24] VITALS: BP 93/60
[2025-08-10 08:44] LABS: Glucose - Point of Care 67 mg/dl (70-99)
[2025-08-10 09:21] LABS: Glucose - Point of Care 105 mg/dl (70-99)
[2025-08-10] MEDS: ELIQUIS 5 MG PO ×2 (09:21→20:17)
[2025-08-10] MEDS: DESENEX/MITRAZOL/ZEASORB 1 APPLIC TOPICAL ×2 (09:21→20:17)
[2025-08-10] MEDS: RENVELA 1600 MG PO ×3 (09:21→17:58)
[2025-08-10] MEDS: SENSIPAR 30 MG PO (09:21)
--- NOTE | 2025-08-10 11:20 | W.PN.HOSP.TC ---
Today's Communication/Plan
-
HD
disposition planning
Assessment / Plan
Assessment / Plan
#Hypoglycemic, improved
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
� Educated on not skipping meals, including dinner; educated on latenight snack
� No obvious source of infection, for follow-up, trend fever curve, white count
#Recurrent ascites
#MASH liver cirrhosis
- not on diuretics due to anuric state
- Status post diagnostic and therapeutic paracentesis, no signs of SBP
- Will continue to monitor for recurrence of ascites post paracentesis
- IR consulted for Tx paracentesis on 08/04
#Hyponatremia
� Monitor with HD
�Follow-up outpatient
#ESRD on HD MWF
#Hyperkalemia, receiving dialysis
- Unclear etiology
- Complicated by bone mineral disease for which she takes sevelamer and Cinacalcet
- Nephrology consulted to resume HD schedule
- Trend BMP, I's and O's, weight
#Cardiac murmur
- Has a 2/6 murmur best heard in the RUSB with honking quality
- Suspect calcific aortic stenosis, especially with ESRD history
- No signs of CHF or decompensation
- Recommend OP TTE and follow-up with cardiology
#Bleeding from HD access
#Mild thrombocytopenia
- Bleeding has improved since holding SQH
- Hemoglobin stable
#Chronic hypotension
- Associated with liver cirrhosis and hemodialysis
- patient was on 15 mg 3 times daily midodrine in the past, increased to this.
- Need to confirm home dose midodrine with facility
#RLE abrasion with weeping
#Chronic venous insufficiency
- Wound care
- Trend CBC and temperature curve
#Paroxysmal AF
- Resume Eliquis, patient states he was on this, 5 mg Eliquis twice daily
- Will monitor here for signs of recurrence
#PAD s/p left BKA
#History of osteomyelitis
- Home regimen includes moderate intensity atorvastatin, not on antiplatelet agent
- States he had amputation for previous infection of his bones, received vancomycin at the time
#Left eye blindness
#Recent hip fracture
Diet: Standard renal
Thromboprophylaxis: SQ heparin
CODE STATUS: Full code
Anticipated Discharge: 24 - 48 hours
Subjective/Interval History
-
Date of Service: August 10, 2025
No acute events overnight
Objective Data
-
Vital Signs:
Vital Signs
Temp Pulse Resp BP Pulse Ox
97.5 F 99 16 93/60 94
08/10/25 08:24 08/10/25 08:24 08/10/25 08:24 08/10/25 08:24 08/10/25 08:24
I&O
08/09/25 08/10/25 08/11/25
06:59 06:59 06:59
Intake Total 1080 / 1080 1889 / 1889
Output Total 0 / 0 0 / 0
Balance 1080 / 1080 1889 / 1889
Review of Systems
-
History Source: Patient
All other systems: Not reviewed unless documented
Data Reviewed
-
Diagnostic Radiology: Report Reviewed by me
Labs: Labs Reviewed by me and Discussed with Patient
[2025-08-10 11:22] LABS: Glucose - Point of Care 106 mg/dl (70-99)
[2025-08-10 11:23] VITALS: BP 95/49
--- NOTE | 2025-08-10 11:27 | W.PN.NEPH.PH ---
Today's Communication / Plan
-
Dialysis tomorrow
Assessment/Plan
-
55-year-old male past medical history of ESRD on hemodialysis Monday, Monday, Monday, liver cirrhosis secondary to NOLASCO, paroxysmal atrial fibrillation on Eliquis, chronic venous stasis, left eye blindness, left lower extremity amputation,
presenting with increasing shortness of breath with increased abdominal distention despite receiving dialysis. He required paracentesis 6 months ago at which time 7 L of fluid removed.
Impression.
ESRD Monday
NOLASCO
Anemia of chronic disease
Atrial fibrillation
Plan
Continue MWF HD schedule
Epogen with dialysis for hemoglobin goal greater than 10
Maintain high dose midodrine 15 milligrams 3 times daily for chronic hypotension in setting of probable cirrhosis from NOLASCO
Status post paracentesis, may require another prior to discharge.
No acute need for dialysis today
Placement issues ongoing
-
-
Date of Service: August 10, 2025
CC / HPI / ROS
-
Chief Complaint:
ESRD
History of Present Illness:
Presented with shortness of breath abdominal distention ascites status post paracentesis secondary to NOLASCO
ESRD on Monday schedule
Hemodynamically labile on high-dose midodrine 15 mg 3 times daily
Remains on sevelamer for hyperphosphatemia
Review of Systems:
Complains of mushy bowel movements
No shortness of breath or chest pain
Labs
-
Labs:
WBC 4.1 10^3/uL (4.8-10.8) L 08/09/25 07:06
RBC 3.40 10^6/uL (4.70-6.10) L 08/09/25 07:06
Hgb 10.1 g/dL (13.0-18.0) L 08/09/25 07:06
Hct 30.9 % (39.0-52.0) L 08/09/25 07:06
Plt Count 94 10^3/uL (130-400) L 08/09/25 07:06
Sodium 130 mmol/L (135-145) L 08/09/25 07:06
Potassium 4.7 mmol/L (3.5-5.1) 08/09/25 07:06
Chloride 98 mmol/L (98-107) 08/09/25 07:06
Carbon Dioxide 29 mmol/L (22-30) 08/09/25 07:06
BUN 31 mg/dl (9-20) H 08/09/25 07:06
Creatinine 4.3 mg/dL (0.7-1.3) H* 08/09/25 07:06
eGFR 15.44 08/09/25 07:06
Glucose 80 mg/dl (70-99) 08/09/25 07:06
Calcium 7.4 mg/dl (8.4-10.2) L 08/09/25 07:06
Albumin 2.9 g/dl (3.5-5.0) L 08/09/25 07:06
Physical Exam
-
Vital Signs:
Vital Signs
Temp Pulse Resp BP Pulse Ox
97.7 F 89 16 95/49 97
08/10/25 11:23 08/10/25 11:23 08/10/25 11:23 08/10/25 11:23 08/10/25 11:23
Respiratory:: Bilateral: CTA
Lung Excursion:: Normal
Abdomen:: Distended, Nontender and Soft
Bowel Sounds:: Normal
Extremity Edema:: None: Bilateral:
[2025-08-10 15:44] VITALS: BP 119/65
[2025-08-10 16:50] LABS: Glucose - Point of Care 91 mg/dl (70-99)
[2025-08-10] MEDS: LIPITOR 20 MG PO (17:59)
[2025-08-10 19:30] VITALS: BP 94/53
[2025-08-10] MEDS: IMODIUM 2 MG PO (20:17)
[2025-08-10 21:37] LABS: Glucose - Point of Care 90 mg/dl (70-99)
[2025-08-10 23:09] VITALS: BP 102/62
[2025-08-11] VITALS (9 sets, daily range): BP systolic 85–102; BP diastolic 56–63; PULSE 87; O2SAT 97; BMI 36.1
[2025-08-11 03:37] LABS: Glucose - Point of Care 83 mg/dl (70-99)
[2025-08-11] MEDS: ULTRAM 50 MG PO (04:57)
--- NOTE | 2025-08-11 07:34 | W.PN.HOSP.TC ---
Today's Communication/Plan
-
hd today
CM for placement
Assessment / Plan
Assessment / Plan
#Recurrent ascites
#MASH liver cirrhosis
- not on diuretics due to anuric state
- Status post diagnostic and therapeutic paracentesis, no signs of SBP on 08/01, 08/04
- Will continue to monitor for recurrence of ascites post paracentesis
#Hyponatremia
� Monitor with HD
�Follow-up outpatient
#Hypoglycemic, improved
� Asymptomatic, suspect it was secondary to not eating a meal
#ESRD on HD MWF
#Hyperkalemia; resolved
- Complicated by bone mineral disease for which he takes sevelamer and Cinacalcet
- Nephrology for HD schedule
- Trend BMP, I's and O's, weight
#Cardiac murmur
- Has a 2/6 murmur best heard in the RUSB with honking quality
- Suspect calcific aortic stenosis, especially with ESRD history
- No signs of CHF or decompensation
- Recommend OP TTE and follow-up with cardiology
#Bleeding from HD access
#Mild thrombocytopenia
- Bleeding has improved since holding SQH
- Hemoglobin stable
#Chronic hypotension
- Associated with liver cirrhosis and hemodialysis
- patient was on 15 mg 3 times daily midodrine in the past, increased to this.
- Need to confirm home dose midodrine with facility
#RLE abrasion with weeping
#Chronic venous insufficiency
- Wound care
- Trend CBC and temperature curve
#Paroxysmal AF
- 5 mg Eliquis twice daily
- Will monitor here for signs of recurrence
#PAD s/p left BKA
#History of osteomyelitis
- Home regimen includes moderate intensity atorvastatin, not on antiplatelet agent
- States he had amputation for previous infection of his bones, received vancomycin at the time
#Left eye blindness
#Recent hip fracture
Diet: Standard renal
Thromboprophylaxis: SQ heparin
CODE STATUS: Full code
Anticipated Discharge: 24 - 48 hours
Subjective/Interval History
-
Date of Service: August 11, 2025
AFVSS. Offers no new complaint. States that he is not sure where he is going to go at the time of discharge
Objective Data
-
Labs:
Laboratory Results
08/11/25 08/11/25
06:00 07:32
WBC Cancelled
Hgb Cancelled
Hct Cancelled
Plt Count Cancelled
Sodium Cancelled Pending
Potassium Cancelled Pending
Chloride Cancelled Pending
Carbon Dioxide Cancelled Pending
BUN Cancelled Pending
Creatinine Cancelled Pending
Glucose Cancelled Pending
Calcium Cancelled Pending
Total Bilirubin Cancelled Pending
AST Cancelled Pending
ALT Cancelled Pending
Alkaline Phosphatase Cancelled Pending
Vital Signs:
Vital Signs
Temp Pulse Resp BP Pulse Ox
98.1 F 116 16 99/63 98
08/11/25 03:03 08/11/25 05:06 08/11/25 03:03 08/11/25 05:06 08/11/25 03:03
I&O
08/10/25 08/11/25 08/12/25
06:59 06:59 06:59
Intake Total 1889 / 1889 960 / 960
Output Total 0 / 0
Balance 1889 / 1889 960 / 960
Review of Systems
-
History Source: Patient
All other systems: Not reviewed unless documented
Physical Exam
-
General: Well Developed, Appears Chronically Ill and Obese
HEENT: Normocephalic, Atraumatic and Moist Mucous Membranes
Respiratory: Clear to Auscultation and Non Labored Respirations; Negative Accessory Resp Muscle Use
Cardiac: Regular Rhythm, S1/S2 and Murmur; Negative Rub or Gallop
GI: Soft, Nontender, Normal Bowel Sounds and Distended (Mild, fluid wave+)
Musculoskeletal: No Clubbing, No Cyanosis, No Edema and Other ((L) BKA)
Skin: Warm and Dry; Negative Rash
Neuro: AO x 3, Nonfocal/Grossly Intact and Central Nerve's Intact
Psych: Calm
Data Reviewed
-
Labs: Labs Reviewed by me, Discussed with Physician and Discussed with Patient
[2025-08-11 08:23] LABS: Glucose - Point of Care 89 mg/dl (70-99)
[2025-08-11] MEDS: ELIQUIS 5 MG PO ×2 (08:36→19:46)
[2025-08-11] MEDS: RENVELA 1600 MG PO ×3 (08:36→17:35)
[2025-08-11] MEDS: SENSIPAR 30 MG PO (08:36)
[2025-08-11] MEDS: DESENEX/MITRAZOL/ZEASORB 1 APPLIC TOPICAL ×2 (08:40→19:46)
--- NOTE | 2025-08-11 11:35 | CM ---
Addendum entered by Marie Mccloud 08/11/25 15:48:
1300 pickup with [facility] crew tomorrow
[facility]11/[facility] 15:28:
Call with SNF admissions/Annie
Pt accepted for admission tomorrow
IMM completed with pt bedside- copy provided
Transport forms on chart- [facility] to arrange for [facility] around 11am-12pm pickup, awaiting confirmation
SNF confirmed ava bed at [facility] and will order air mattress if pt qualifies
Attending aware
Discharge Disposition- [facility] tomorrow via [facility] ([phone] pickup requested)
Phone- [phone] [facility] Fax- [phone]
Original Note:
CM reviewed chart and pt with attending
Call with [facility] admissions/Annie
Bed available at [facility], awaiting approval from [facility] HD provider for HD acceptance at facility
Additional clinicals along with [employer] denial from [facility] sent to SNF via [facility]
Bedside update to pt- he remains in agreement with plan
Discharge Disposition- [facility] with HD, likely will need [facility] transport
[2025-08-11 11:54] LABS: Glucose - Point of Care 86 mg/dl (70-99)
[2025-08-11 12:58] LABS: ALT (SGPT) 11 U/L (0-50); AST (SGOT) 22 U/L (17-59); Albumin 3.1 g/dl (3.5-5.0); Alkaline Phosphatase 126 U/L (38-126); Blood Urea Nitrogen 50 mg/dl (9-20); Calcium 7.4 mg/dl (8.4-10.2); Carbon Dioxide 24 mmol/L (22-30); Chloride 98 mmol/L (98-107); Estimated Creatinine Clearance 19 ml/min; Glucose 105 mg/dl (70-99); Potassium 4.8 mmol/L (3.5-5.1); Sodium 128 mmol/L (135-145); Total Protein 7.0 g/dl (6.3-8.2); eGFR 10.15
[2025-08-11] MEDS: FLEXBUMIN 25% FOR HEMODIALYSIS 12.5 GRAMS IV ×2 (13:03→14:34)
[2025-08-11] MEDS: MANNITOL 25% 12.5 GRAMS IV ×2 (13:03→14:34)
[2025-08-11] MEDS: RETACRIT 8000 UNITS IV (13:04)
--- NOTE | 2025-08-11 14:41 | W.PN.NEPH.HD ---
Assessment
-
Seen on HD. no complaints. VSS, midodrine with HD, access ok
Progress Note - Hemodialysis
-
Date of Service: August 11, 2025
Duration: 30 minutes and 3 hours
Potassium Bath: 2
Calcium Bath: 2.5
Opti-Dialyzer: 160
Ultrafiltration: Other (3kg)
Blood Flow: 400
Dialysate Flow: 600
Heparin: 0
EPO: 8000 units
[2025-08-11 17:23] LABS: Glucose - Point of Care 73 mg/dl (70-99)
[2025-08-11] MEDS: LIPITOR 20 MG PO (17:35)
[2025-08-11 21:56] LABS: Glucose - Point of Care 98 mg/dl (70-99)
[2025-08-11] MEDS: BENADRYL 50 MG PO (23:07)
[2025-08-12 03:04] VITALS: BP 105/61
[2025-08-12 04:48] VITALS: BMI 35.5
[2025-08-12] MEDS: ULTRAM 50 MG PO (05:13)
[2025-08-12 07:31] LABS: Hematocrit 29.9 % (39.0-52.0); Hemoglobin 10.4 g/dL (13.0-18.0); Mean Corp Hgb Conc. 34.8 g/dL (33.0-37.0); Mean Corpuscular Volume 87.9 fL (80.0-94.0); Platelet Count 105 10^3/uL (130-400); Red Cell Dist. Width 19.7 % (11.5-14.5)
[2025-08-12 07:42] LABS: Blood Urea Nitrogen 34 mg/dl (9-20); Calcium 7.4 mg/dl (8.4-10.2); Carbon Dioxide 29 mmol/L (22-30); Chloride 96 mmol/L (98-107); Estimated Creatinine Clearance 24 ml/min; Glucose 63 mg/dl (70-99); Potassium 4.5 mmol/L (3.5-5.1); Sodium 128 mmol/L (135-145); eGFR 13.88
[2025-08-12 08:21] LABS: Glucose - Point of Care 60 mg/dl (70-99)
[2025-08-12 08:26] VITALS: BP 97/52
[2025-08-12] MEDS: DESENEX/MITRAZOL/ZEASORB 1 APPLIC TOPICAL (08:48)
[2025-08-12] MEDS: RENVELA 1600 MG PO ×2 (08:48→12:13)
[2025-08-12] MEDS: ELIQUIS 5 MG PO (08:48)
[2025-08-12] MEDS: SENSIPAR 30 MG PO (08:48)
[2025-08-12 09:13] LABS: Glucose - Point of Care 69 mg/dl (70-99)
[2025-08-12 09:49] LABS: Glucose - Point of Care 78 mg/dl (70-99)
--- NOTE | 2025-08-12 10:08 | CM ---
CM reviewed pt with attending and pt remains ready for dc
Bed with HD remains available at [facility]
Bedside meeting with pt- he remains in agreement with plan
His belongings at prior SNF will be transported to new SNF today by their staff
Update to SNF and nursing
Discharge Disposition- [facility] via [facility] 1300 pickup
Phone- [phone] [address]
Fax- [phone]
[2025-08-12 11:13] VITALS: BP 95/55
[2025-08-12 11:21] LABS: Glucose - Point of Care 83 mg/dl (70-99)
--- NOTE | 2025-08-12 11:29 | W.PN.NEPH.PH ---
Today's Communication / Plan
-
dc
Assessment/Plan
-
55-year-old male past medical history of ESRD on hemodialysis Monday, Monday, Monday, liver cirrhosis secondary to NOLASCO, paroxysmal atrial fibrillation on Eliquis, chronic venous stasis, left eye blindness, left lower extremity amputation,
presenting with increasing shortness of breath with increased abdominal distention despite receiving dialysis. He required paracentesis 6 months ago at which time 7 L of fluid removed.
Impression.
ESRD Monday
NOLASCO
Anemia of chronic disease
Atrial fibrillation
Plan
Continue MWF HD schedule
Epogen with dialysis for hemoglobin goal greater than 10
Maintain high dose midodrine 15 milligrams 3 times daily for chronic hypotension in setting of probable cirrhosis from NOLASCO
Status post paracentesis, may require another prior to discharge.
No acute need for dialysis today
for dc to [facility]
-
-
Date of Service: August 12, 2025
CC / HPI / ROS
-
Chief Complaint:
ESRD
History of Present Illness:
Presented with shortness of breath abdominal distention ascites status post paracentesis secondary to NOLASCO
ESRD on Monday schedule
tolerated HD yesterday
Hemodynamically labile on high-dose midodrine 15 mg 3 times daily
Remains on sevelamer for hyperphosphatemia
Review of Systems:
Complains of mushy bowel movements
No shortness of breath or chest pain
Labs
-
Labs:
WBC 4.2 10^3/uL (4.8-10.8) L 08/12/25 06:33
RBC 3.40 10^6/uL (4.70-6.10) L 08/12/25 06:33
Hgb 10.4 g/dL (13.0-18.0) L 08/12/25 06:33
Hct 29.9 % (39.0-52.0) L 08/12/25 06:33
Plt Count 105 10^3/uL (130-400) L 08/12/25 06:33
Sodium 128 mmol/L (135-145) L 08/12/25 06:33
Potassium 4.5 mmol/L (3.5-5.1) 08/12/25 06:33
Chloride 96 mmol/L (98-107) L 08/12/25 06:33
Carbon Dioxide 29 mmol/L (22-30) 08/12/25 06:33
BUN 34 mg/dl (9-20) H 08/12/25 06:33
Creatinine 4.7 mg/dL (0.7-1.3) H* 08/12/25 06:33
eGFR 13.88 08/12/25 06:33
Glucose 63 mg/dl (70-99) L 08/12/25 06:33
Calcium 7.4 mg/dl (8.4-10.2) L 08/12/25 06:33
Albumin 3.1 g/dl (3.5-5.0) L 08/11/25 12:25
Physical Exam
-
Vital Signs:
Vital Signs
Temp Pulse Resp BP Pulse Ox
97.4 F 95 16 95/55 97
08/12/25 11:13 08/12/25 11:13 08/12/25 11:13 08/12/25 11:13 08/12/25 11:13
Cardiovascular:: Regular rate and rhythm
Lung Excursion:: Normal
Abdomen:: Nontender and Soft
Bowel Sounds:: Normal
Extremity Edema:: None: Bilateral:
--- NOTE | 2025-08-12 11:48 | W.PN.HOSP.TC ---
Today's Communication/Plan
-
Discharge to SNF
Resume HD tomorrow
Assessment / Plan
Assessment / Plan
#Recurrent ascites
#MASH liver cirrhosis
- not on diuretics due to anuric state
- Status post diagnostic and therapeutic paracentesis, no signs of SBP on 08/01, 08/04
- Will continue to monitor for recurrence of ascites post paracentesis
#Hyponatremia
� Monitor with HD
�Follow-up outpatient
#Hypoglycemic, improved
� Asymptomatic, suspect it was secondary to not eating a meal
- Encouraging patient to have an evening snack to avoid hypoglycemia
- Not on insulin or other antihyperglycemic
#ESRD on HD MWF
#Hyperkalemia; resolved
- Complicated by bone mineral disease for which he takes sevelamer and Cinacalcet
- Nephrology for HD schedule
- Trend BMP, I's and O's, weight
#Cardiac murmur
- Has a 2/6 murmur best heard in the RUSB with honking quality
- Suspect calcific aortic stenosis, especially with ESRD history
- No signs of CHF or decompensation
- Recommend OP TTE and follow-up with cardiology
#Bleeding from HD access
#Mild thrombocytopenia
- Bleeding has improved since holding SQH
- Hemoglobin stable
#Chronic hypotension
- Associated with liver cirrhosis and hemodialysis
- patient was on 15 mg 3 times daily midodrine in the past, increased to this.
- Need to confirm home dose midodrine with facility
#RLE abrasion with weeping
#Chronic venous insufficiency
- Wound care
- Trend CBC and temperature curve
#Paroxysmal AF
- 5 mg Eliquis twice daily
- Will monitor here for signs of recurrence
#PAD s/p left BKA
#History of osteomyelitis
- Home regimen includes moderate intensity atorvastatin, not on antiplatelet agent
- States he had amputation for previous infection of his bones, received vancomycin at the time
#Left eye blindness
#Recent hip fracture
Diet: Standard renal
Thromboprophylaxis: SQ heparin
CODE STATUS: Full code
Anticipated Discharge: Today
Subjective/Interval History
-
Date of Service: August 12, 2025
Seen and examined at the bedside. No acute events reported overnight. AFVSS this morning.
Patient frustrated at personal items listed [facility]. Plan for transport to SNF at 1 PM
Hypoglycemic this morning though improved with time and juice. Denies any new medical complaints
Objective Data
-
Labs:
Laboratory Results
08/12/25
06:33
WBC 4.2 L
Hgb 10.4 L
Hct 29.9 L
Plt Count 105 L
Sodium 128 L
Potassium 4.5
Chloride 96 L
Carbon Dioxide 29
BUN 34 H
Creatinine 4.7 H*
Glucose 63 L
Calcium 7.4 L
Vital Signs:
Vital Signs
Temp Pulse Resp BP Pulse Ox
97.4 F 95 16 95/55 97
08/12/25 11:13 08/12/25 11:13 08/12/25 11:13 08/12/25 11:13 08/12/25 11:13
I&O
08/11/25 08/12/25 08/13/25
06:59 06:59 06:59
Intake Total 960 / 960 480 / 480 480 / 480
Balance 960 / 960 480 / 480 480 / 480
Review of Systems
-
History Source: Patient
All other systems: Reviewed and negative
Physical Exam
-
General: Well Developed, No Apparent Distress and Obese
HEENT: Normocephalic, Atraumatic, Moist Mucous Membranes and Anicteric
Respiratory: Clear to Auscultation and Non Labored Respirations; Negative Accessory Resp Muscle Use
Cardiac: Regular Rhythm, S1/S2 and Murmur; Negative Rub or Gallop
GI: Soft, Nontender, Nondistended and Normal Bowel Sounds
Musculoskeletal: No Clubbing, No Cyanosis and No Edema
Skin: Warm and Dry; Negative Rash
Neuro: AO x 3, Nonfocal/Grossly Intact and Central Nerve's Intact
Psych: Calm
Data Reviewed
-
Labs: Labs Reviewed by me and Discussed with Patient
--- NOTE | 2025-08-12 12:43 | W.DCSUMMARY ---
Discharge Summary
Discharge Data
Date of Admission: 07/31/25
Date of Discharge: 08/12/25
Total time spent discharging patient (in min): 35
-
Pending Results: No
Hospital Course
Discharging physician: Kwadwo Melo DO
Discharge disposition: SNF
Primary discharge diagnoses:
Ascites s/p paracentesis x 2
Cardiac murmur
Hypotension on midodrine
Hypoglycemia
Chronic discharge diagnoses:
MASH liver cirrhosis
ESRD on HD M/W/F
Hypotension on midodrine
Paroxysmal AF on Eliquis
PAD s/p left BKA
Hospital course:
55-year-old [facility] and discomfort. Initial imaging consistent with large volume ascites and interventional radiology was consulted and performed therapeutic and diagnostic paracentesis
here. Diagnostically consistent with portal hypertensive etiology, no signs of SBP on cell analysis. Was continued on his home hemodialysis schedule while here. Had intermittent hypotension which improved with increased dosing of midodrine. He
was hypoglycemic at times, not on antihyperglycemic regimen, and was encouraged to having evening snack to prevent episodes of hypoglycemia. Was evaluated by physical therapy who recommended return to SNF.
Consultants:
Accounts Payable Or Receivable Clerk -- Geo Quintero MD
Interventional radiologist --Leoncio Cee MD
Pertinent imaging findings:
CXR 07/31/2025
Lungs: Diffuse interstitial prominence. No convincing focal infiltrates. Small bilateral pleural effusions. No visualized pneumothorax.
Heart: Cardiac and mediastinal contours are mildly enlarged. Mild to moderate pulmonary vascular congestion.
Osseous structures: No acute abnormalities.
Procedures:
Paracentesis 08/01/2025
FINDINGS: 8400 cc of clear komal ascitic fluid was evacuated. Samples sent for analysis as requested.
Paracentesis 08/04/2025
FINDINGS:4100 cc of [clear gold] ascitic fluid was evacuated. Samples sent for analysis as requested.
Follow-up:
Family doctor within 1 week
Accounts Payable Or Receivable Clerk as previously scheduled
Resume HD schedule on 08/13
Discharge Plan
-
Patient Disposition: [facility]/SNF
Discharge Diagnosis/Procedures: Ascites
MASH liver cirrhosis
ESRD on HD MWF
Bleeding from HD access
Mild thrombocytopenia
Cardiac murmur
Condition: Fair
Diet: Low Cholesterol and Other diet
Additional Diets: No added salt, low potassium; Nightly snack to avoid hypoglycemia
Activity: With assistance and As tolerated
Driving Restrictions: No driving
Bathing Restrictions: None
Blood Work: BMP, mag, CBC with differential in 1 week after discharge
Others Tests: Follow-up with family doctor for echocardiogram to assess your heart murmur
Other Services: PT and OT
Activity Restrictions/Additional Instructions:
Wound Care Instructions Right Leg Wound- Clean with normal saline or soap and water. Apply adaptic, ABD and wrap with lazara or kerlix. Change daily and PRN drainage.
Air mattress
Turning schedule
Keep right heel off-loaded with pillow or air cushion under calf.
Please take a snack at night, ensure not skipping dinner
Follow up at wound care center call for an appointment.
Referrals:
Hepatology, Provider [Other] - in one to two weeks
Hemodialysis [Other] - Immediately
Smitha Proctor MD [Family Provider] - in less than 1 week
Additional Discharge Medication Instructions: Use midodrine 15 mg 3 times daily for low blood pressure, hold if SBP >100 mmHg
Prescriptions:
New
miconazole nitrate [Miconazorb AF] 2 % Powder
1 applic topical BID 30 Days Qty: 85 0RF
midodrine 5 mg Tablet
15 mg PO TID@0800,1300,1800 Qty: 0 0RF
Eliquis 5 mg Tablet
5 mg PO BID Qty: 0 0RF
Continued
atorvastatin 20 mg Tablet
20 mg PO QPM
bisacodyl 10 mg Suppository
10 mg FL DAILY PRN (Reason: constipation if MOM is ineffec)
carboxymethylcellulose sodium 0.5 % Dropperette
1 drp OPHTHALMIC (EYE) QID PRN (Reason: dry eyes)
cinacalcet 30 mg Tablet
30 mg PO DAILY
Rx Instructions:
one time a day - for nutritional supplementation related to ESRD
diclofenac sodium 3 % Gel
1 applic TOPICAL BID
Rx Instructions:
apply to R foot/ankle topically every day and evening shift for mild pain before therapy and transfers
ferric citrate 210 mg iron Tablet
420 mg PO TID
lidocaine 4 % Gel
1 applic TOPICAL DAILY
Rx Instructions:
apply to the skin topically in the morning for mild pain
loperamide 2 mg Tablet
2 mg PO Q8H PRN (Reason: diarrhea)
methocarbamol 500 mg Tablet
500 mg PO QID PRN (Reason: spasms)
sevelamer HCl 800 mg Tablet
800 mg PO TID
Rx Instructions:
nutritional supplementation related to ESRD
tramadol 50 mg Tablet
50 mg PO BID PRN (Reason: moderate pain)
white petrolatum [White Petroleum Jelly] Gel
1 applic TOPICAL DAILY PRN (Reason: preventative measure dry skin)
Discharge Orders:
Discharge Patient (As Directed); Ordered 08/07/25
Ordered By: Rashid Da Silva
Discharge Date and Time
Print Language: SINGAPORE[place]
== END 2025-08-12 13:56 | DRG 441 ==
LOC: 2 NORTH 20:04
PROVIDERS: Internal Medicine; Radiology Diagnostic Radiology; Radiology Vascular & Interventional Radiology; Specialist; ADMITTING PHYSICIAN Hospitalist; ATTENDING PHYSICIAN Internal Medicine; EMERGENCY PHYSICIAN Emergency Medicine; FAMILY PHYSICIAN Internal Medicine; OTHER PHYSICIAN Internal Medicine Nephrology
PROC: 0W9G3ZZ Drainage of Peritoneal Cavity, Percutaneous Approach (ICD-10-PCS; 2025-08-01)
PROC: 5A1D70Z Performance of Urinary Filtration, Intermittent, Less than 6 Hours Per Day (ICD-10-PCS; 2025-08-01)
DX: K75.81 Nonalcoholic steatohepatitis (NASH) (principal); N18.6 End stage renal disease; E87.1 Hypo-osmolality and hyponatremia; T82.838A Hemorrhage due to vascular prosthetic devices, implants and grafts, initial encounter; K76.6 Portal hypertension; K74.60 Unspecified cirrhosis of liver; Z99.2 Dependence on renal dialysis; Y84.1 Kidney dialysis as the cause of abnormal reaction of the patient, or of later complication, without mention of misadventure at the time of the procedure; D69.6 Thrombocytopenia, unspecified; I48.0 Paroxysmal atrial fibrillation; Z89.512 Acquired absence of left leg below knee; E16.2 Hypoglycemia, unspecified; I95.89 Other hypotension; H54.62 Unqualified visual loss, left eye, normal vision right eye; I73.9 Peripheral vascular disease, unspecified; S80.811A Abrasion, right lower leg, initial encounter; E87.5 Hyperkalemia; I87.8 Other specified disorders of veins; Z87.891 Personal history of nicotine dependence; Z79.01 Long term (current) use of anticoagulants; D63.1 Anemia in chronic kidney disease; Z79.899 Other long term (current) drug therapy; Z91.048 Other nonmedicinal substance allergy status
CPT/HCPCS: 49083; 71046; 80048; 80053; 82042; 82150; 82962; 83615; 83735; 84157; 85025; 85027; 86706; 87015; 87070; 87147; 87205; 87340; 88112; 88305; 89051; 97163; 97167; 97530; 97535; 99285; G0257; P9047; Q5106